=== PATIENT | female | born 1955 | race Two or more races ===

== ENCOUNTER 2017-10-22 11:54 | Emergency (ER) | payer OTHER ==
[~2017-10-22] VITALS: Ht 160 cm; Wt 39.9 kg
[~2017-10-22 11:54] MED LIST: ALEN70; ALEN70 PO; ALPR.5; ALPR.5 PO; ARIP10 PO; ASPI81EC PO; ATOR10; ATOR20 PO; ATOR40TA PO; Abilify5 MG; Aspir-Low81 MG PO; B Complex #11 EACH PO; BUDE6HFA INH; BUPR150ER; Bentyl20 MG; DULO30 PO; EPIPEN0.3 MG/0.3 IM; ESCI10; ESCI10 PO; ESCI20 PO; FENT50TP TOP; FENTANYL1 EAC1 TD; GABA300; GABA300 PO; HYDHCL25 PO; IRON PO; LISHYD1012; LISHYD1012 PO; LISI5; LISINOPRIL/HCTZ PO; LORA.5; LUNESTA; Lomotil Tablet1 EACH PO; MECL25; METO10; MORP15ER PO; Multiple Vitam1 EAC1 PO; NICO21TP; NITR.4SL SL; Neurontin 300300 MG PO; ONDA4ODT MM; OXYACE7.5T PO; PROACE100 PO; PROAIR RESPICL90 MCG INH; PROC10; PROC5S PR; PROM12.5S PR; PROM25S; TEMA30; TEMA30 PO; Vitamin A and1 EACH
[2017-10-22 13:42] LABS: BASOPHILS ABSOLUTE AUTO 0.05 K/mm3 (0.00-0.23); BASOPHILS PERCENT AUTO 1 % (0-2); EOSINOPHILS ABSOLUTE AUTO 0.04 K/mm3 (0.00-0.68); EOSINOPHILS PERCENT AUTO 1 % (0-6); Hemoglobin 13.3 g/dL (11.5-16.0); IMMATURE GRAN ABSOLUTE AUTO 0.02 K/mm3 (0.00-0.10); IMMATURE GRAN PERCENT AUTO 0 % (0-1); LYMPHOCYTES ABSOLUTE AUTO 2.39 K/mm3 (0.84-5.20); LYMPHOCYTES PERCENT AUTO 29 % (21-46); MONOCYTES ABSOLUTE AUTO 0.61 K/mm3 (0.16-1.47); MONOCYTES PERCENT AUTO 7 % (4-13); Mean Corpuscular HGB 32.4 pg (26.0-34.0); Mean Corpuscular Volume 93 fL (80-100); Mean Platelet Volume 8.8 fL (9.1-12.4); NEUTROPHILS ABSOLUTE AUTO 5.08 K/mm3 (1.96-9.15); NEUTROPHILS PERCENT AUTO 62 % (41-73); Platelet Count 320 K/mm3 (150-400); RDW Standard Deviation 43.8 fL (35.1-46.3); Red Blood Cell Count 4.11 M/mm3 (3.80-5.20); White Blood Cell Count 8.19 K/mm3 (4.00-11.30)
[2017-10-22 14:01] LABS: Alanine Aminotransfer (ALT/SGP 17 U/L (12-78); Albumin, Blood 4.5 g/dL (3.4-5.0); Albumin/Globulin Ratio 1.3 (0.8-1.8); Alk Phos 87 U/L (50-136); Anion Gap 6 mmol/L (6-16); Aspartate Aminotrans (AST/SGOT 19 U/L (12-37); Bilirubin, Total 0.3 mg/dL (0.1-1.0); Blood Urea Nitrogen 16 mg/dL (8-24); Bun/Creatinine Ratio 20.5 (12.0-20.0); CO2, Blood 28 mmol/L (21-32); Calcium, Blood 9.6 mg/dL (8.5-10.1); Chloride, Blood 99 mmol/L (98-108); Creatinine, Blood 0.78 mg/dL (0.40-1.00); Globulin, Blood 3.5 g/dL (2.2-4.0); Glomerular Filtration Rate >60 (60-); Glucose, Blood 86 mg/dL (70-99); Potassium, Blood 3.9 mmol/L (3.5-5.5); Sodium, Blood 133 mmol/L (136-145)
[2017-10-22] MEDS ORDERED: Pepcid20 MG PO (17:17)
[2017-10-22] MEDS ORDERED: METO10 PO (17:17)
== END 2017-10-22 17:59 | disposition home or self-care (01) ==
LOC: ER 11:54
PROVIDERS: Physician Assistant
DX: R11.2 Nausea with vomiting, unspecified (principal); E86.0 Dehydration; I10 Essential (primary) hypertension; J44.9 Chronic obstructive pulmonary disease, unspecified; Z88.8 Allergy status to other drugs, medicaments and biological substances; I25.2 Old myocardial infarction; Z79.899 Other long term (current) drug therapy; Z79.891 Long term (current) use of opiate analgesic; Z79.82 Long term (current) use of aspirin
CPT/HCPCS: 36415; 80053; 85025; 96361; 96374; 99284; J2405; J7030

== ENCOUNTER 2018-02-20 13:11 | Emergency (ER) | payer OTHER ==
[~2018-02-20] VITALS: Ht 160 cm; Wt 39.5 kg
[~2018-02-20 13:11] MED LIST changes: +METO10 PO; +Pepcid20 MG PO
[2018-02-20 13:53] LABS: BASOPHILS ABSOLUTE AUTO 0.03 K/mm3 (0.00-0.23); BASOPHILS PERCENT AUTO 0 % (0-2); EOSINOPHILS ABSOLUTE AUTO 0.01 K/mm3 (0.00-0.68); EOSINOPHILS PERCENT AUTO 0 % (0-6); Hemoglobin 12.1 g/dL (11.5-16.0); IMMATURE GRAN ABSOLUTE AUTO 0.02 K/mm3 (0.00-0.10); IMMATURE GRAN PERCENT AUTO 0 % (0-1); LYMPHOCYTES ABSOLUTE AUTO 1.72 K/mm3 (0.84-5.20); LYMPHOCYTES PERCENT AUTO 24 % (21-46); MONOCYTES ABSOLUTE AUTO 0.46 K/mm3 (0.16-1.47); MONOCYTES PERCENT AUTO 7 % (4-13); Mean Corpuscular HGB 35.2 pg (26.0-34.0); Mean Corpuscular HGB Conc 34.6 g/dL (31.5-36.5); Mean Corpuscular Volume 102 fL (80-100); Mean Platelet Volume 8.5 fL (9.1-12.4); NEUTROPHILS ABSOLUTE AUTO 4.87 K/mm3 (1.96-9.15); NEUTROPHILS PERCENT AUTO 69 % (41-73); Platelet Count 458 K/mm3 (150-400); RDW Standard Deviation 48.4 fL (35.1-46.3); Red Blood Cell Count 3.44 M/mm3 (3.80-5.20); White Blood Cell Count 7.11 K/mm3 (4.00-11.30)
[2018-02-20 14:14] LABS: Alanine Aminotransfer (ALT/SGP 31 U/L (12-78); Albumin, Blood 4.1 g/dL (3.4-5.0); Albumin/Globulin Ratio 1.2 (0.8-1.8); Alk Phos 97 U/L (50-136); Anion Gap 5 mmol/L (6-16); Aspartate Aminotrans (AST/SGOT 23 U/L (12-37); Bilirubin, Total 0.3 mg/dL (0.1-1.0); Blood Urea Nitrogen 10 mg/dL (8-24); CO2, Blood 27 mmol/L (21-32); Calcium, Blood 9.1 mg/dL (8.5-10.1); Chloride, Blood 104 mmol/L (98-108); Creatinine, Blood 0.67 mg/dL (0.40-1.00); Globulin, Blood 3.4 g/dL (2.2-4.0); Glomerular Filtration Rate >60 (60-); Glucose, Blood 107 mg/dL (70-99); Potassium, Blood 3.4 mmol/L (3.5-5.5); Sodium, Blood 136 mmol/L (136-145); Total Protein, Blood 7.5 g/dL (6.4-8.2)
[2018-02-20] MEDS ORDERED: Zofran4 MG SL (14:43)
[2018-02-20] MEDS ORDERED: SERT50 PO (14:43)
[2018-02-20] MEDS ORDERED: EPIPEN0.3 MG/0.3 IM (14:44)
[2018-02-20] MEDS ORDERED: TRAZ50 PO (14:44)
[2018-02-20] MEDS ORDERED: NITRSPRAY (14:44)
[2018-02-20 15:25] LABS: Source, Urine Clean Catch
[2018-02-20 15:35] LABS: Appearance, Urine Clear (Clear); Bilirubin, Urine Neg (Neg); Blood, Urine Neg (Neg); Color, Urine Yellow (P-Yellow); Glucose Qualitative, Urine Neg (Neg); Ketones, Urine Neg (Neg); Leukocyte Esterase, Urine 1+ (Neg); Nitrite, Urine Neg (Neg); Protein, Urine 1+ (Neg); Urobilinogen, Urine NORM (Normal); pH, Urine 6.5 (5.0-8.0)
[2018-02-20 15:56] LABS: Bacteria Rare /hpf; Red Blood Cells, Urine 0-2 /hpf (0-2); Squamous Epithelial Cells Rare /hpf (Few); White Blood Cells, Urine 0-2 /hpf (0-5)
== END 2018-02-20 16:50 | disposition home or self-care (01) ==
LOC: ER 13:11
PROVIDERS: Emergency Medicine
DX: E86.0 Dehydration (principal); R11.2 Nausea with vomiting, unspecified; I10 Essential (primary) hypertension; J44.9 Chronic obstructive pulmonary disease, unspecified; Z87.891 Personal history of nicotine dependence; Z79.899 Other long term (current) drug therapy; Z79.891 Long term (current) use of opiate analgesic; Z79.82 Long term (current) use of aspirin
CPT/HCPCS: 36415; 71046; 80053; 81001; 83690; 85025; 87086; J1200; J2765; J7120

== ENCOUNTER → 2019-03-25 | Outpatient (CLI) | payer OTHER ==
[~2019-03-25] MED LIST changes: +NITRSPRAY; +SERT50 PO; +TRAZ50 PO; +Zofran4 MG SL
[2019-03-25 19:35] LABS: Campylobacter Sp Not Detected (NOT DETECT)
[2019-03-25 19:36] LABS: Adenovirus F 40/41 Not Detected (NOT DETECT); Astrovirus Not Detected (NOT DETECT); Cryptosporidium Not Detected (NOT DETECT); Cyclospora Cayetanensis Not Detected (NOT DETECT); E. Coli O157 Not Detected (NOT DETECT); Entamoeba Histolytica Not Detected (NOT DETECT); Enteroaggregative E. coli-EAEC Not Detected (NOT DETECT); Enteropathogenic E. coli-EPEC Not Detected (NOT DETECT); Enterotoxigenic E. coli-ETEC Not Detected (NOT DETECT); Giardia Lamblia Not Detected (NOT DETECT); Norovirus GI/GII Not Detected (NOT DETECT); Plesiomonas Shigelloides Not Detected (NOT DETECT); Rotavirus A Not Detected (NOT DETECT); Salmonella Sp Not Detected (NOT DETECT); Sapovirus Not Detected (NOT DETECT); Shiga Toxin-prod E. coli-STEC Not Detected (NOT DETECT); Shigella/Enteroin E. coli-EIEC Not Detected (NOT DETECT); Vibrio Cholerae Not Detected (NOT DETECT); Vibrio Sp Not Detected (NOT DETECT); Yersinia Enterocolitica Not Detected (NOT DETECT)
== END ==
LOC: LAB SHORT 17:20 → LAB 17:20 → LAB FUT 03-17 15:40
PROVIDERS: Internal Medicine Gastroenterology
DX: R11.2 Nausea with vomiting, unspecified (principal); R19.7 Diarrhea, unspecified; R63.4 Abnormal weight loss
CPT/HCPCS: 87324; 87507

== ENCOUNTER 2019-04-15 10:41 | Emergency (ER) | payer OTHER ==
[~2019-04-15] VITALS: Ht 160 cm; Wt 38.1 kg
[2019-04-15 11:33] LABS: BASOPHILS ABSOLUTE AUTO 0.04 K/mm3 (0.00-0.23); BASOPHILS PERCENT AUTO 1 % (0-2); EOSINOPHILS ABSOLUTE AUTO 0.02 K/mm3 (0.00-0.68); EOSINOPHILS PERCENT AUTO 0 % (0-6); Hematocrit 30.7 % (33.0-51.0); Hemoglobin 10.7 g/dL (11.5-16.0); IMMATURE GRAN ABSOLUTE AUTO 0.02 K/mm3 (0.00-0.10); IMMATURE GRAN PERCENT AUTO 0 % (0-1); LYMPHOCYTES ABSOLUTE AUTO 1.68 K/mm3 (0.84-5.20); LYMPHOCYTES PERCENT AUTO 22 % (21-46); MONOCYTES ABSOLUTE AUTO 0.65 K/mm3 (0.16-1.47); MONOCYTES PERCENT AUTO 9 % (4-13); Mean Corpuscular HGB 34.6 pg (26.0-34.0); Mean Corpuscular HGB Conc 34.9 g/dL (31.5-36.5); Mean Corpuscular Volume 99 fL (80-100); Mean Platelet Volume 8.6 fL (9.1-12.4); NEUTROPHILS ABSOLUTE AUTO 5.23 K/mm3 (1.96-9.15); NEUTROPHILS PERCENT AUTO 68 % (41-73); Platelet Count 384 K/mm3 (150-400); RDW Coefficient Variation 12.1 % (11.7-14.2); Red Blood Cell Count 3.09 M/mm3 (3.80-5.20); White Blood Cell Count 7.64 K/mm3 (4.00-11.30)
[2019-04-15 12:00] LABS: Alanine Aminotransfer (ALT/SGP 24 U/L (12-78); Albumin, Blood 3.6 g/dL (3.4-5.0); Albumin/Globulin Ratio 1.1 (0.8-1.8); Alk Phos 91 U/L (50-136); Anion Gap 10 mmol/L (6-16); Aspartate Aminotrans (AST/SGOT 26 U/L (12-37); Bilirubin, Total 0.4 mg/dL (0.1-1.0); Blood Urea Nitrogen 12 mg/dL (8-24); Bun/Creatinine Ratio 18.5 (12.0-20.0); CO2, Blood 23 mmol/L (21-32); Calcium, Blood 9.2 mg/dL (8.5-10.1); Chloride, Blood 99 mmol/L (98-108); Creatinine, Blood 0.65 mg/dL (0.40-1.00); Globulin, Blood 3.3 g/dL (2.2-4.0); Glomerular Filtration Rate >60 (60-); Glucose, Blood 93 mg/dL (70-99); Potassium, Blood 3.6 mmol/L (3.5-5.5); Sodium, Blood 132 mmol/L (136-145); Total Protein, Blood 6.9 g/dL (6.4-8.2)
[2019-04-15] MEDS ORDERED: METO10 PO (12:20)
== END 2019-04-15 12:44 | disposition home or self-care (01) ==
LOC: ER 10:41
PROVIDERS: Emergency Medicine
DX: R11.2 Nausea with vomiting, unspecified (principal); D64.9 Anemia, unspecified; I25.2 Old myocardial infarction; I10 Essential (primary) hypertension; J44.9 Chronic obstructive pulmonary disease, unspecified; K31.89 Other diseases of stomach and duodenum; Z87.891 Personal history of nicotine dependence; Z79.82 Long term (current) use of aspirin; Z79.899 Other long term (current) drug therapy; Z88.8 Allergy status to other drugs, medicaments and biological substances
CPT/HCPCS: 80053; 83690; 85025; 93005; 93010; 96361; 96374; 96375; 99284-25; J1200; J2405; J2765; J7030

== ENCOUNTER 2019-08-15 05:10 | Emergency (ER) | payer MEDICARE ==
[~2019-08-15] VITALS: Ht 157.5 cm; Wt 36.7 kg
[2019-08-15] MEDS ORDERED: ESCITALOPRAM OX10 MG PO (05:27)
[2019-08-15] MEDS ORDERED: TEMA30 PO (05:27)
[2019-08-15] MEDS ORDERED: Zantac150 MG (05:27)
[2019-08-15 05:50] LABS: BASOPHILS ABSOLUTE AUTO 0.01 K/mm3 (0.00-0.23); BASOPHILS PERCENT AUTO 0 % (0-2); EOSINOPHILS ABSOLUTE AUTO 0.01 K/mm3 (0.00-0.68); EOSINOPHILS PERCENT AUTO 0 % (0-6); Hematocrit 31.5 % (33.0-51.0); Hemoglobin 11.4 g/dL (11.5-16.0); IMMATURE GRAN ABSOLUTE AUTO 0.02 K/mm3 (0.00-0.10); IMMATURE GRAN PERCENT AUTO 0 % (0-1); LYMPHOCYTES ABSOLUTE AUTO 0.97 K/mm3 (0.84-5.20); LYMPHOCYTES PERCENT AUTO 15 % (21-46); MONOCYTES ABSOLUTE AUTO 0.42 K/mm3 (0.16-1.47); MONOCYTES PERCENT AUTO 7 % (4-13); Mean Corpuscular HGB 37.3 pg (26.0-34.0); Mean Corpuscular HGB Conc 36.2 g/dL (31.5-36.5); Mean Corpuscular Volume 103 fL (80-100); Mean Platelet Volume 8.3 fL (9.1-12.4); NEUTROPHILS ABSOLUTE AUTO 4.93 K/mm3 (1.96-9.15); NEUTROPHILS PERCENT AUTO 77 % (41-73); Platelet Count 352 K/mm3 (150-400); RDW Coefficient Variation 13.4 % (11.7-14.2); RDW Standard Deviation 51.7 fL (35.1-46.3); Red Blood Cell Count 3.06 M/mm3 (3.80-5.20); White Blood Cell Count 6.36 K/mm3 (4.00-11.30)
[2019-08-15 06:11] LABS: Alanine Aminotransfer (ALT/SGP 22 U/L (12-78); Albumin/Globulin Ratio 1.2 (0.8-1.8); Alk Phos 75 U/L (50-136); Anion Gap 12 mmol/L (6-16); Aspartate Aminotrans (AST/SGOT 26 U/L (12-37); Bilirubin, Total 0.4 mg/dL (0.1-1.0); Blood Urea Nitrogen 16 mg/dL (8-24); Bun/Creatinine Ratio 24.1 (12.0-20.0); CO2, Blood 22 mmol/L (21-32); Calcium, Blood 9.5 mg/dL (8.5-10.1); Chloride, Blood 95 mmol/L (98-108); Creatinine, Blood 0.66 mg/dL (0.40-1.00); Globulin, Blood 3.2 g/dL (2.2-4.0); Glomerular Filtration Rate >60 (60-); Glucose, Blood 103 mg/dL (70-99); Magnesium, Blood 1.5 mg/dL (1.6-2.4); Potassium, Blood 3.9 mmol/L (3.5-5.5); Sodium, Blood 129 mmol/L (136-145); Total Protein, Blood 7.2 g/dL (6.4-8.2)
== END 2019-08-15 06:40 | disposition home or self-care (01) ==
LOC: ER 05:10
PROVIDERS: Emergency Medicine
DX: K31.84 Gastroparesis (principal); R11.2 Nausea with vomiting, unspecified; F41.9 Anxiety disorder, unspecified; I25.2 Old myocardial infarction; I10 Essential (primary) hypertension; J44.9 Chronic obstructive pulmonary disease, unspecified; Z87.891 Personal history of nicotine dependence; Z88.8 Allergy status to other drugs, medicaments and biological substances; Z79.899 Other long term (current) drug therapy; Z79.82 Long term (current) use of aspirin
CPT/HCPCS: 36415; 80053; 83690; 83735; 85025; 96361; 96374; 96375; 99284-25; J1200; J2405; J2765; J7030

== ENCOUNTER 2019-08-31 10:44 | Emergency (ER) | payer MEDICARE ==
[~2019-08-31] VITALS: Ht 157.5 cm; Wt 34.9 kg
[~2019-08-31 10:44] MED LIST changes: +ASPIR 8181 MG PO; -Aspir-Low81 MG PO; +ESCITALOPRAM OX10 MG PO; -LISINOPRIL/HCTZ PO; +ONDA4ODT PO; +ZESTORETIC 20-1 EAC1 PO; +Zantac150 MG PO; -Zofran4 MG SL
[2019-08-31 12:05] LABS: BASOPHILS ABSOLUTE AUTO 0.04 K/mm3 (0.00-0.23); BASOPHILS PERCENT AUTO 1 % (0-2); EOSINOPHILS ABSOLUTE AUTO 0.09 K/mm3 (0.00-0.68); EOSINOPHILS PERCENT AUTO 1 % (0-6); Hematocrit 29.7 % (33.0-51.0); Hemoglobin 10.3 g/dL (11.5-16.0); IMMATURE GRAN ABSOLUTE AUTO 0.03 K/mm3 (0.00-0.10); IMMATURE GRAN PERCENT AUTO 0 % (0-1); LYMPHOCYTES ABSOLUTE AUTO 1.48 K/mm3 (0.84-5.20); LYMPHOCYTES PERCENT AUTO 21 % (21-46); MONOCYTES ABSOLUTE AUTO 0.75 K/mm3 (0.16-1.47); MONOCYTES PERCENT AUTO 11 % (4-13); Mean Corpuscular HGB 36.9 pg (26.0-34.0); Mean Corpuscular HGB Conc 34.7 g/dL (31.5-36.5); Mean Corpuscular Volume 107 fL (80-100); Mean Platelet Volume 8.2 fL (9.1-12.4); NEUTROPHILS ABSOLUTE AUTO 4.66 K/mm3 (1.96-9.15); NEUTROPHILS PERCENT AUTO 66 % (41-73); Platelet Count 305 K/mm3 (150-400); RDW Coefficient Variation 12.8 % (11.7-14.2); RDW Standard Deviation 49.6 fL (35.1-46.3); Red Blood Cell Count 2.79 M/mm3 (3.80-5.20); White Blood Cell Count 7.05 K/mm3 (4.00-11.30)
[2019-08-31 12:21] LABS: Alanine Aminotransfer (ALT/SGP 28 U/L (12-78); Albumin/Globulin Ratio 1.3 (0.8-1.8); Alk Phos 107 U/L (50-136); Anion Gap 7 mmol/L (6-16); Aspartate Aminotrans (AST/SGOT 32 U/L (12-37); Bilirubin, Total 0.3 mg/dL (0.1-1.0); Blood Urea Nitrogen 16 mg/dL (8-24); CO2, Blood 29 mmol/L (21-32); Chloride, Blood 98 mmol/L (98-108); Glomerular Filtration Rate >60 (60-); Glucose, Blood 74 mg/dL (70-99); Potassium, Blood 3.2 mmol/L (3.5-5.5); Sodium, Blood 134 mmol/L (136-145)
== END 2019-08-31 14:09 | disposition home or self-care (01) ==
LOC: ER 10:44
PROVIDERS: Emergency Medicine
DX: K31.84 Gastroparesis (principal); E87.6 Hypokalemia; Z88.8 Allergy status to other drugs, medicaments and biological substances; Z79.899 Other long term (current) drug therapy; Z79.82 Long term (current) use of aspirin; I10 Essential (primary) hypertension; I25.2 Old myocardial infarction; J44.9 Chronic obstructive pulmonary disease, unspecified
CPT/HCPCS: 36415; 80053; 83690; 85025; 96361; 96374; 96375; 99284-25; J1200; J2765; J7030

== ENCOUNTER 2019-09-09 01:29 | Inpatient (IN) | payer MEDICARE ==
[~2019-09-09] VITALS: Ht 157.5 cm; Wt 34.8 kg
[2019-09-09 01:57] LABS: BASOPHILS ABSOLUTE AUTO 0.03 K/mm3 (0.00-0.23); BASOPHILS PERCENT AUTO 0 % (0-2); EOSINOPHILS ABSOLUTE AUTO 0.01 K/mm3 (0.00-0.68); EOSINOPHILS PERCENT AUTO 0 % (0-6); Hematocrit 32.4 % (33.0-51.0); Hemoglobin 11.7 g/dL (11.5-16.0); IMMATURE GRAN ABSOLUTE AUTO 0.01 K/mm3 (0.00-0.10); IMMATURE GRAN PERCENT AUTO 0 % (0-1); LYMPHOCYTES ABSOLUTE AUTO 1.39 K/mm3 (0.84-5.20); LYMPHOCYTES PERCENT AUTO 16 % (21-46); MONOCYTES ABSOLUTE AUTO 0.76 K/mm3 (0.16-1.47); MONOCYTES PERCENT AUTO 9 % (4-13); Mean Corpuscular HGB Conc 36.1 g/dL (31.5-36.5); Mean Corpuscular Volume 105 fL (80-100); Mean Platelet Volume 8.3 fL (9.1-12.4); NEUTROPHILS ABSOLUTE AUTO 6.78 K/mm3 (1.96-9.15); NEUTROPHILS PERCENT AUTO 76 % (41-73); Platelet Count 353 K/mm3 (150-400); RDW Coefficient Variation 12.2 % (11.7-14.2); RDW Standard Deviation 47.2 fL (35.1-46.3); Red Blood Cell Count 3.08 M/mm3 (3.80-5.20); White Blood Cell Count 8.98 K/mm3 (4.00-11.30)
[2019-09-09 02:13] LABS: Ethanol (Alcohol), Blood, Med <3 mg/dL
[2019-09-09 02:16] LABS: Source, Urine Clean Catch
[2019-09-09 02:25] LABS: Alanine Aminotransfer (ALT/SGP 29 U/L (12-78); Albumin, Blood 4.4 g/dL (3.4-5.0); Albumin/Globulin Ratio 1.3 (0.8-1.8); Alk Phos 79 U/L (50-136); Anion Gap 13 mmol/L (6-16); Aspartate Aminotrans (AST/SGOT 33 U/L (12-37); Bilirubin, Total 0.7 mg/dL (0.1-1.0); Blood Urea Nitrogen 10 mg/dL (8-24); Bun/Creatinine Ratio 15.8 (12.0-20.0); CO2, Blood 25 mmol/L (21-32); Calcium, Blood 10.4 mg/dL (8.5-10.1); Chloride, Blood 92 mmol/L (98-108); Creatinine, Blood 0.63 mg/dL (0.40-1.00); Globulin, Blood 3.3 g/dL (2.2-4.0); Glomerular Filtration Rate >60 (60-); Glucose, Blood 118 mg/dL (70-99); Potassium, Blood 3.2 mmol/L (3.5-5.5); Sodium, Blood 130 mmol/L (136-145); Total Protein, Blood 7.7 g/dL (6.4-8.2)
[2019-09-09 02:28] LABS: Appearance, Urine Clear (Clear); Bilirubin, Urine Neg (Neg); Blood, Urine 1+ (Neg); Color, Urine Yellow (P-Yellow); Glucose Qualitative, Urine Neg (Neg); Ketones, Urine 1+ (Neg); Leukocyte Esterase, Urine 1+ (Neg); Nitrite, Urine Neg (Neg); Protein, Urine 2+ (Neg); Specific Gravity, Urine 1.005 (1.003-1.022); Urobilinogen, Urine NORM (Normal)
[2019-09-09 02:35] LABS: Amorphous Light (0-Heavy); Bacteria Few /hpf; Red Blood Cells, Urine 0-2 /hpf (0-2); Squamous Epithelial Cells Rare /hpf (Few); White Blood Cells, Urine 0-2 /hpf (0-5)
[2019-09-09 03:03] LABS: U Amphetamine Screen Not Detected; U Barbituate Screen Not Detected; U Benzodiazapine Screen DETECTED; U Buprenorphine Screen Not Detected; U Cannabinoids Screen DETECTED; U Cocaine Screen Not Detected; U Methadone Screen Not Detected; U Methamphetamine Screen Not Detected; U Opiates Screen Not Detected; U Oxycodone Screen DETECTED; U Phencyclidine Screen Not Detected; U Propoxyphene Screen Not Detected
--- NOTE | 2019-09-09 06:45 | NUR ---
ASSUMED PT CARE AT 0610 PT RESTING IN BED ALERT AND ORIENTED AND RESPONDING TO QUESTIONS APPROPRIATELY. RECALLS WHY SHE CAME TO THE HOSPITAL. NOTED TO BE FORGETFUL AT TIMES. SBP 150-180'S UPON ADMIT. PT CLAIMS SHE TAKES HER BLOOD PRESSURE MEDICATION. UNABLE TO RECONCILE MED LIST D/T PT BEING POOR HISTORIAN. NO FAMILY AT BEDSIDE UPON ASSUMPTION OF CARE. PT CLAIMS HER IS FAIRLY FORGETFUL AND WENT HOME FOR THE NIGHT. 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 PT CLAIMS SHE HAS HAD A POOR APPETITE FOR SOME TIME NOW; STATES TWO YEARS AGO SHE WEIGHED 130 AND IS NOW DOWN TO 70 POUNDS. PT STATES SHE SMOKE MARIJUANA FOR HER NAUSEA AT HOME. ALSO STATES SHE SMOKE 1/2 PACK OF CIGARETTES PER DAY. LUNG SOUNDS ARE DIMINISHED T/O WITH NON-PRODUCTIVE, HARSH COUGH. CALL LIGHT WITHIN REACH; PT ABLE TO MAKE HER NEEDS KNOWN. WILL CONTINUE TO MONITOR UNTIL REPORT IS HANDED OFF TO ONCOMING RN.
--- NOTE | 2019-09-09 16:24 | NUR ---
CARE ASSUMED 0800: CARE ASSUMED, ASSESSMENT COMPLETED. PT DROWSY BUT WAKES EASILY, ORIENTED TO SELF, PLACE, SITUATION, DOES NOT APPEAR TO BE POSTICTAL AT THIS TIME. STATES SHE HAS HAD ONE SEIZURE BEFORE WHEN SHE WAS 17, NONE SINCE. PT REPORTS OVER THE PAST 2 YEARS SHE HAS LOST ABOUT 50 POUNDS D/T POOR APPETITE, ABDOMINAL PAIN, AND CHRONIC NAUSEA. WILL CONSULT DR. VORA PER ORDERS. PT APPEARS MALNOURISHED, SKIN GROSSLY INTACT. BP ELEVATED, OTHER VSS, WILL MEDICATE PER MAR. SEIZURE PRECAUTIONS IN PLACE. WILL MEDICATE FOR NAUSEA, NO EMESIS, PT DENIES ABD PAIN AT THIS TIME. 1000: PT RESTING ON AND OFF, REMAINS DROWSY BUT ORIENTED. EEG COMPLETED, DR IN TO SEE PATIENT. 1200: PT AWAKE AND ALERT, SITTING UP IN BED TO EAT LUNCH, DENIES ABD PAIN OR C/O, NO SEIZURE ACTIVITY THIS SHIFT. BP RESPONDED WELL TO AM MEDS, OTHER VSS. UNABLE TO COMPLETE MRI AT THIS TIME, AWAITING CARDIAC STENT INFORMATION FROM HOSPITAL IN [place]. 1400: PT RESTING ON AND OFF, MEDICATED AT THIS TIME FOR NAUSEA, DENIES OTHER NEEDS. VSS. 1600: AT BEDSIDE, PT UP MULTIPLE TIMES FOR LIQUID BM'S AFTER LACTULOSE. CAPPS PATENT AND DRAINING, VSS. PT STATES NAUSEA IS MINIMAL, DENIES ABD PAIN. TOLERATING CLEAR LIQUIDS WELL, NO EMESIS THIS SHIFT, NO SEIZURE ACTIVITY.
--- NOTE | 2019-09-09 18:03 | NUR ---
Spiritual Care inital note: Mrs. Jose was welcoming of prayer and emotional encouragement. She smiles easily and tells me she is hopeful. She has a strong and loving marriage. She denied fears/concerns. School Lunch Manager services will remain available.
--- NOTE | 2019-09-09 18:28 | NUR ---
PT UP TO BSC, ASSISTED BACK TO BED, WAS SPEAKING NORMALLY WITH STAFF UPON RETURN TO BED, BEGAN STUTTERING, REMAINS ALERT AND ORIENTED X4, DENIES PAIN/SOB. BILAT ARMS WERE RAISED ABOVE PT'S HEAD, ARMS BEGAN SHAKING, PT CONTINUES TO STUTTER, STATES SHE IS UNABLE TO CONTROL MOVEMENTS. EPISODE LASTED APPROXIMATELY 2-3 MINUTES, ATIVAN 1MG ADMINISTERED PER ORDERS, PT CALMED, UNCONTROLLED MOVEMENTS/STUTTERING STOPPED. VSS T/O, PT REMAINED ALERT AND SPEAKING APPROPRIATELY T/O EPISODE.
--- NOTE | 2019-09-09 18:44 | NUR ---
PT RESTING IN BED WITH EYES CLOSED, VSS, HR 70'S NSR, NO ADDITIONAL TREMORS NOTED. DR. PULIDO NOTIFIED OF PT'S EPISODE, NO NEW ORDERS AT THIS TIME. REPORT TO ONCOMING SHIFT.
--- NOTE | 2019-09-09 19:22 | NUR ---
PREVENTATIVE MEPILEX PLACED TO COCCYX EARLIER THIS SHIFT, NO WOUND TO COCCYX.
[2019-09-09 20:30] LABS: Adenovirus F 40/41 Not Detected (NOT DETECT); Astrovirus Not Detected (NOT DETECT); Campylobacter Sp Not Detected (NOT DETECT); Cryptosporidium Not Detected (NOT DETECT); Cyclospora Cayetanensis Not Detected (NOT DETECT); E. Coli O157 Not Detected (NOT DETECT); Entamoeba Histolytica Not Detected (NOT DETECT); Enteroaggregative E. coli-EAEC Not Detected (NOT DETECT); Enteropathogenic E. coli-EPEC Not Detected (NOT DETECT); Enterotoxigenic E. coli-ETEC Not Detected (NOT DETECT); Giardia Lamblia Not Detected (NOT DETECT); Norovirus GI/GII Not Detected (NOT DETECT); Plesiomonas Shigelloides Not Detected (NOT DETECT); Rotavirus A Not Detected (NOT DETECT); Salmonella Sp Not Detected (NOT DETECT); Shiga Toxin-prod E. coli-STEC Not Detected (NOT DETECT); Shigella/Enteroin E. coli-EIEC Not Detected (NOT DETECT); Vibrio Cholerae Not Detected (NOT DETECT); Vibrio Sp Not Detected (NOT DETECT); Yersinia Enterocolitica Not Detected (NOT DETECT)
[2019-09-09 20:31] LABS: Sapovirus Not Detected (NOT DETECT)
--- NOTE | 2019-09-09 22:20 | NUR ---
ASSUMPTION OF CARE ASSUMED CARE FROM DAYSHIFT NURSE. PT SATS ABOVE 95% ON RA. A&OX4. PULSES STRONG. LUNGS CTAB. PATIENT SLEEPY, BUT AROUSABLE. TRANSFERRED TO MEDICAL FLOOR AFTER GIVING NIGHT TIME MEDS (LACTULOSE AND KEPPRA).
--- NOTE | 2019-09-10 04:39 | NUR ---
SHIFT SUMMARY AMANDA'S LS WERE CLR T/O AND BT+ X4. AMANDA APPEARS TO BE SLEEPING WELL T/O THE NIGHT EXCEPT TO GET UP TO BSC. AMANDA ARRIVED HERE TO THIS UNIT LATE IN THE EVENING LAST NIGHT. SHE CAME FROM PCU. AMANDA IS VERY THIN AND ANOREXIC. SHE RECENTLY LOST 50 LBS. AND CURRENTLY WEIGHS 75-80 LBS. AMANDA WAS ADMITTED FOR SEIZURES. SHE HAD ONE AT HOME THAT LASTED 10 MIN AND ONE IN THE ER THAT LASTED 1 MIN AND ONE IN PCU THAT LASTED 1 MIN. WHEN EXPERIENCING A SEIZURE, SHE RAISES UP ONE HAND AND HER EYES MOVE [id number]. NO EPISODES HAVE HAPPENED TONIGHT.
--- NOTE | 2019-09-10 06:19 | NUR ---
NURSE NOTE AT APPROX 0614 THIS MORNING, AMANDA HAD ANOTHER EPISODE THAT RESEMBLED A SEIZURE. WHEN SHE FELT IT COMING ON, SHE WAS ABLE TO PUSH HER CALL BUTTON. A PRODUCT SUPPORT ANALYST WENT IN AND OBSERVED HER HAVING A "SEIZURE," WHICH CAN BE DESCRIBED BILATERAL HANDS UP IN THE AIR AND BEING UNABLE TO SPEAK. THE PRODUCT SUPPORT ANALYST TIMED IT APPROX 1 MINUTE. WHEN AMANDA CAME OUT OF THE "SEIZURE," SHE WAS VERY TALKATIVE AND NOT SLEEPY AT ALL.
--- NOTE | 2019-09-10 15:37 | NUR ---
09/10/19 1537 Nubia Santillan History, Chart, Medications and Allergies reviewed before start of procedure. PATIENT CONFIRMS NPO STATUS AND AGREES WITH SCHEDULED PROCEDURE.MONITOR INTACT WITH CONTINUOUS PULSE OXIMETRY AND INTERMITTENT BP. O2 VIA N/C INTACT THROUGHOUT SEDATION/PROCEDURE. 3-LEAD EKG REVIEWED WITH PHYSICIAN PRIOR TO START OF PROCEDURE. PATIENT DETERMINED TO BE ASA APPROPRIATE FOR PROPOFOL SEDATION PRIOR TO START OF PROCEDURE BY DR. VORA.
--- NOTE | 2019-09-10 19:00 | NUR ---
PT. SLEEPING SOUNDLY AT THIS TIME, ATE PART OF HER FULL LIQUID DINNER. RETURNED FROM DAY SURGERY AT 1630. A&O BUT A LITTLE DROWSY. TOLERATED PROCEDURE WELL. DENIES PAIN NAUSEA OR SOB. NO NOTEABLE CHANGES THIS SHIFT.
--- NOTE | 2019-09-11 04:32 | NUR ---
AMANDA'S LS WERE CLR T/O AND BT+. SHE HAD ZOFRAN FOR NAUSEA AT 2003 WHICH WAS EFFECTIVE, AND SHE HAD ATIVAN FOR ANXIETY, WHICH WAS ALSO EFFECTIVE. NO "SEIZURE ACTIVITY" WAS NOTED LAST NIGHT OR THIS MORNING. SHE RECEIVED HER IV KEPPRA SCHEDULED WITH NO ASE NOTED. SHE APPEARED TO BE SLEEPING ON AND OFF ALL NIGHT. SHE REFUSED HER LACTULOSE X1 THIS SHIFT SHE WAS EXPERIENCING DIARRHEA EACH TIME SHE USED THE TOILET.
[2019-09-11 05:34] LABS: Anion Gap 5 mmol/L (6-16); Blood Urea Nitrogen 4 mg/dL (8-24); Bun/Creatinine Ratio 5.7 (12.0-20.0); CO2, Blood 25 mmol/L (21-32); Calcium, Blood 8.2 mg/dL (8.5-10.1); Chloride, Blood 105 mmol/L (98-108); Glomerular Filtration Rate >60 (60-); Glucose, Blood 88 mg/dL (70-99); Potassium, Blood 3.4 mmol/L (3.5-5.5); Sodium, Blood 135 mmol/L (136-145)
[2019-09-11] MEDS ORDERED: LEVE500 PO (12:51)
[2019-09-11] MEDS ORDERED: Prinivil10 MG PO (12:51)
--- NOTE | 2019-09-11 14:09 | NUR ---
[facility]ED [facility] AND ADDED THE POTASSIUM PRESCRIPTION PER DR STERLING'S ORDERS. PATIENT IS ALERT AND ORIENTED INDEPENDENT. PLEASANT. ALL INFORMATION GIVEN TO THE PATIENT. SHE MADE HER OWN FOLLOW UP APPOINTMENT WITH KELLE DONALDSON PRIOR TO DISCHARGE.
[2019-09-15 17:06] LABS: ALANINE 355.4 umol/L (209.2-515.5); ALPHA-AMINOADIPATE <0.5 umol/L (0.0-1.9); ALPHA-AMINOBUTYRATE 16.4 umol/L (5.4-34.5); ARGININE 79.6 umol/L (36.3-119.2); ARGININOSUCCINATE <0.1 umol/L (0.0-3.0); ASPARAGINE 61.7 umol/L (29.5-84.5); ASPARTATE 1.7 umol/L (0.0-7.4); BETA-ALANINE 1.6 umol/L (1.1-9.0); BETA-AMINOISOBUTYRATE 1.6 umol/L (0.0-4.3); CITRULLINE 45.9 umol/L (15.6-46.9); CYSTATHIONINE <0.5 umol/L (0.0-0.7); CYSTINE 50.8 umol/L (15.8-47.3); GAMMA-AMINOBUTYRATE <0.5 umol/L (0.0-0.6); GLUTAMATE 28.2 umol/L (18.1-155.9); GLUTAMINE 554.1 umol/L (372.8-701.4); GLYCINE 345.1 umol/L (144.0-411.0); HISTIDINE 63.9 umol/L (47.2-98.5); HOMOCITRULLINE 0.9 umol/L (0.0-1.7); HOMOCYSTINE <0.3 umol/L (0.0-0.2); HYDROXYLYSINE 0.3 umol/L (0.1-0.8); ISOLEUCINE 36.8 umol/L (32.8-88.3); LEUCINE 61.8 umol/L (66.7-165.7); LYSINE 129.6 umol/L (94.0-278.0); METHIONINE 25.5 umol/L (14.7-35.2); ORNITHINE 55.2 umol/L (30.1-101.3); PHENYLALANINE 57.3 umol/L (35.8-76.9); PROLINE 192.2 umol/L (84.8-352.5); SARCOSINE 1.1 umol/L (0.0-4.0); TAURINE 32.3 umol/L (29.2-132.3); TRYPTOPHAN 35.7 umol/L (23.5-93.0); TYROSINE 32.7 umol/L (27.8-83.3); VALINE 96.6 umol/L (133.0-317.1)
== END 2019-09-11 13:17 | disposition home or self-care (01) | DRG 100 ==
LOC: ER 01:29 → ICUW 05:15 → MEDS 05:15 → ICUE 05:15 → MEDS 21:14
PROVIDERS: Emergency Medicine; Internal Medicine; Internal Medicine Gastroenterology; ADMIT Family Medicine
PROC: 0DD68ZX Extraction of Stomach, Via Natural or Artificial Opening Endoscopic, Diagnostic (ICD-10-PCS; 2019-09-10)
PROC: 0DD98ZX Extraction of Duodenum, Via Natural or Artificial Opening Endoscopic, Diagnostic (ICD-10-PCS; principal; 2019-09-10 17:15)
DX: G40.409 Other generalized epilepsy and epileptic syndromes, not intractable, without status epilepticus (principal); E43 Unspecified severe protein-calorie malnutrition; R65.10 Systemic inflammatory response syndrome (SIRS) of non-infectious origin without acute organ dysfunction; E87.1 Hypo-osmolality and hyponatremia; N39.0 Urinary tract infection, site not specified; R64 Cachexia; Z68.1 Body mass index [BMI] 19.9 or less, adult; K44.9 Diaphragmatic hernia without obstruction or gangrene; E87.6 Hypokalemia; Z66 Do not resuscitate; K21.9 Gastro-esophageal reflux disease without esophagitis; I25.10 Atherosclerotic heart disease of native coronary artery without angina pectoris; R19.7 Diarrhea, unspecified; K31.84 Gastroparesis; G43.909 Migraine, unspecified, not intractable, without status migrainosus; Z79.82 Long term (current) use of aspirin; R62.7 Adult failure to thrive; Z87.891 Personal history of nicotine dependence
CPT/HCPCS: 0097U; 36415; 51702; 70450; 74177; 80048; 80053; 81001; 82139; 82140; 83605; 83690; 83970; 85025; 87040; 87086; 88305; 88342; 93005; 93010; 95819; 96374-59; 96375-59; 99285-25; C9113; G0480; J0696; J1953; J2060; J2405; J2704; J3480; J7030; J7120; P9612; Q9967

== ENCOUNTER 2020-09-10 06:26 | Observation (INO) | payer MEDICARE ==
[~2020-09-10] VITALS: Ht 160 cm; Wt 44.0 kg
[~2020-09-10 06:26] MED LIST changes: -ASPIR 8181 MG PO; -ATOR40TA PO; -ESCITALOPRAM OX10 MG PO; +LEVE500 PO; -ONDA4ODT PO; -PROM12.5S PR
[2020-09-10 07:06] LABS: BASOPHILS ABSOLUTE AUTO 0.05 K/mm3 (0.00-0.23); BASOPHILS PERCENT AUTO 0 % (0-2); EOSINOPHILS ABSOLUTE AUTO 0.04 K/mm3 (0.00-0.68); EOSINOPHILS PERCENT AUTO 0 % (0-6); Hematocrit 35.7 % (33.0-51.0); Hemoglobin 12.2 g/dL (11.5-16.0); IMMATURE GRAN ABSOLUTE AUTO 0.06 K/mm3 (0.00-0.10); IMMATURE GRAN PERCENT AUTO 1 % (0-1); LYMPHOCYTES PERCENT AUTO 13 % (21-46); MONOCYTES ABSOLUTE AUTO 1.13 K/mm3 (0.16-1.47); MONOCYTES PERCENT AUTO 10 % (4-13); Mean Corpuscular HGB 32.3 pg (26.0-34.0); Mean Corpuscular HGB Conc 34.2 g/dL (31.5-36.5); Mean Corpuscular Volume 94 fL (80-100); Mean Platelet Volume 8.2 fL (9.1-12.4); NEUTROPHILS ABSOLUTE AUTO 8.48 K/mm3 (1.96-9.15); NEUTROPHILS PERCENT AUTO 75 % (41-73); Platelet Count 407 K/mm3 (150-400); RDW Coefficient Variation 13.3 % (11.7-14.2); RDW Standard Deviation 45.7 fL (35.1-46.3); Red Blood Cell Count 3.78 M/mm3 (3.80-5.20); White Blood Cell Count 11.26 K/mm3 (4.00-11.30)
[2020-09-10 07:25] LABS: Albumin, Blood 3.7 g/dL (3.4-5.0); Albumin/Globulin Ratio 0.9 (0.8-1.8); Bilirubin, Total 0.4 mg/dL (0.1-1.0); Bun/Creatinine Ratio 21.1 (12.0-20.0); Creatinine, Blood 1.33 mg/dL (0.40-1.00); Globulin, Blood 4.1 g/dL (2.2-4.0); Potassium, Blood 3.2 mmol/L (3.5-5.5); Total Protein, Blood 7.8 g/dL (6.4-8.2)
[2020-09-10 09:10] LABS: Source, Urine Clean Catch
[2020-09-10 09:12] LABS: Appearance, Urine Clear (Clear); Bilirubin, Urine Neg (Neg); Blood, Urine Neg (Neg); Color, Urine Yellow (P-Yellow); Glucose Qualitative, Urine Neg (Neg); Ketones, Urine Neg (Neg); Leukocyte Esterase, Urine 1+ (Neg); Nitrite, Urine Neg (Neg); Protein, Urine 2+ (Neg); Urobilinogen, Urine NORM (Normal)
[2020-09-10 09:19] LABS: Bacteria Few /hpf; Red Blood Cells, Urine 0-2 /hpf (0-2); Squamous Epithelial Cells Rare /hpf (Few)
[2020-09-10] MEDS ORDERED: CIPR500 PO (14:41)
[2020-09-10] MEDS ORDERED: METR500 PO (14:41)
[2020-09-10] MEDS ORDERED: ONDA4ODT MM (14:53)
[2020-09-10] MEDS ORDERED: ESCI20 PO (17:06)
[2020-09-10] MEDS ORDERED: TEMAZEPAM30 M1 PO (17:07)
[2020-09-10] MEDS ORDERED: ATOR40TA PO (17:08)
[2020-09-10] MEDS ORDERED: Lisinopril-Hct1 EAC4 PO (17:08)
[2020-09-10] MEDS ORDERED: ASPIR 8181 MG PO (17:19)
[2020-09-10] MEDS ORDERED: PHENERGAN25 MG PR (17:20)
[2020-09-10] MEDS ORDERED: ONDA4ODT SL (17:21)
[2020-09-10] MEDS ORDERED: NITR.4SL SL (17:22)
[2020-09-10] MEDS ORDERED: ALEN70 PO (17:22)
--- NOTE | 2020-09-10 19:30 | NUR ---
AWAKE. IVF INFUSING - SEE MAR FOR DETAILS. DISCUSSED NPO AFTER 0000, VOICED UNDERSTANDING. VOICED SHARP ABD PAIN. WILL ASSESS WHEN TO GET ANALGESIC. CALL LIGHT IN REACH
[2020-09-10 22:44] LABS: Influenza A, PCR Negative (NEGATIVE); Influenza B, PCR Negative (NEGATIVE); Resp Syncytial Virus, PCR Negative (NEGATIVE); SARS-Cov-2 (COVID-19) PCR, MMC Negative (NEGATIVE)
--- NOTE | 2020-09-11 01:57 | NUR ---
NPO SINCE 0000 FOR SURGICAL PROCEDURE SCHEDULED LATER TODAY. IVF INFUSING. CALL LIGHT IN REACH
--- NOTE | 2020-09-11 05:14 | NUR ---
SHIFT SUMMARY HAS BEEN RESTING QUIETLY SINCE HAVING RECEIVED ANALGESIC LAST NIGHT FOR ABD PAIN. NPO SINCE MIDNIGHT FOR SCHEDULED AMILCAR TODAY. IVF INFUSING ORDERED. CALL LIGHT IN REACH
[2020-09-11 05:37] LABS: BASOPHILS ABSOLUTE AUTO 0.02 K/mm3 (0.00-0.23); BASOPHILS PERCENT AUTO 0 % (0-2); EOSINOPHILS ABSOLUTE AUTO 0.14 K/mm3 (0.00-0.68); EOSINOPHILS PERCENT AUTO 2 % (0-6); Hematocrit 30.4 % (33.0-51.0); Hemoglobin 10.1 g/dL (11.5-16.0); IMMATURE GRAN ABSOLUTE AUTO 0.02 K/mm3 (0.00-0.10); IMMATURE GRAN PERCENT AUTO 0 % (0-1); LYMPHOCYTES ABSOLUTE AUTO 1.36 K/mm3 (0.84-5.20); LYMPHOCYTES PERCENT AUTO 19 % (21-46); MONOCYTES ABSOLUTE AUTO 0.71 K/mm3 (0.16-1.47); MONOCYTES PERCENT AUTO 10 % (4-13); Mean Corpuscular HGB 31.7 pg (26.0-34.0); Mean Corpuscular HGB Conc 33.2 g/dL (31.5-36.5); Mean Corpuscular Volume 95 fL (80-100); Mean Platelet Volume 8.2 fL (9.1-12.4); NEUTROPHILS ABSOLUTE AUTO 4.88 K/mm3 (1.96-9.15); NEUTROPHILS PERCENT AUTO 68 % (41-73); Platelet Count 316 K/mm3 (150-400); RDW Coefficient Variation 13.3 % (11.7-14.2); RDW Standard Deviation 46.6 fL (35.1-46.3); Red Blood Cell Count 3.19 M/mm3 (3.80-5.20); White Blood Cell Count 7.13 K/mm3 (4.00-11.30)
[2020-09-11 05:49] LABS: International Normalized Ratio 0.98; Prothrombin Time Results 10.5 Sec (9.7-11.5)
[2020-09-11 06:00] LABS: Alanine Aminotransfer (ALT/SGP 41 U/L (12-78); Albumin, Blood 2.8 g/dL (3.4-5.0); Albumin/Globulin Ratio 0.9 (0.8-1.8); Alk Phos 277 U/L (50-136); Anion Gap 7 mmol/L (6-16); Aspartate Aminotrans (AST/SGOT 50 U/L (12-37); Bilirubin, Total 0.5 mg/dL (0.1-1.0); Blood Urea Nitrogen 13 mg/dL (8-24); Bun/Creatinine Ratio 15.2 (12.0-20.0); CO2, Blood 28 mmol/L (21-32); Calcium, Blood 8.8 mg/dL (8.5-10.1); Chloride, Blood 99 mmol/L (98-108); Creatinine, Blood 0.86 mg/dL (0.40-1.00); Globulin, Blood 3.2 g/dL (2.2-4.0); Glomerular Filtration Rate >60 (60-); Glucose, Blood 81 mg/dL (70-99); Potassium, Blood 3.7 mmol/L (3.5-5.5); Sodium, Blood 134 mmol/L (136-145)
[2020-09-11 10:05] LABS: Campylobacter Sp Not Detected (NOT DETECT)
[2020-09-11 10:06] LABS: Adenovirus F 40/41 Not Detected (NOT DETECT); Astrovirus Not Detected (NOT DETECT); Cryptosporidium Not Detected (NOT DETECT); Cyclospora Cayetanensis Not Detected (NOT DETECT); E. Coli O157 Not Detected (NOT DETECT); Entamoeba Histolytica Not Detected (NOT DETECT); Enteroaggregative E. coli-EAEC Not Detected (NOT DETECT); Enteropathogenic E. coli-EPEC Not Detected (NOT DETECT); Enterotoxigenic E. coli-ETEC Not Detected (NOT DETECT); Giardia Lamblia Not Detected (NOT DETECT); Norovirus GI/GII Not Detected (NOT DETECT); Plesiomonas Shigelloides Not Detected (NOT DETECT); Rotavirus A Not Detected (NOT DETECT); Salmonella Sp Not Detected (NOT DETECT); Sapovirus Not Detected (NOT DETECT); Shiga Toxin-prod E. coli-STEC Not Detected (NOT DETECT); Shigella/Enteroin E. coli-EIEC Not Detected (NOT DETECT); Vibrio Cholerae Not Detected (NOT DETECT); Vibrio Sp Not Detected (NOT DETECT); Yersinia Enterocolitica Not Detected (NOT DETECT)
--- NOTE | 2020-09-11 17:29 | NUR ---
SHIFT SUMMARY NO ACUTE CHANGES T/O SHIFT, A&Ox4, CALM AND COOPERATIVE. FLUIDS RUNNING @ 100 ML/HR CURRENTLY. PT EXPERIENCED SOME NAUSEA AND PAIN TODAY, BOTH TREATED PER EMAR. GALBLADDER REMOVAL RESCHEDULED FOR TOMORROW AND TO BE NPO AFTER MIDNIGHT PER RODNEY. PT IS CURRENTLY RESTING IN BED WATCHING TV WITH CALL LIGHT WITHIN REACH.
--- NOTE | 2020-09-11 19:21 | NUR ---
AWAKE, CHEERFUL AFFECT. DISCUSSED NPO AFTER MIDNIGHT AGAIN. VOICED UNDERSTANDING. IVF OF LR INFUSING AT 100 ML/HR. CALL LIGHT IN REACH.
--- NOTE | 2020-09-12 03:56 | NUR ---
SHIFT SUMMARY HAS BEEN RESTING QUIETLY AT INTERVALS SINCE HS. IVF OF LR CONTINUES AT 100 ML/HR ORDERED. NPO SINCE 0000 FOR SCHEDULED SURGERY LATER THIS AM. CALL LIGHT IN REACH. NO NOTED ACUTE DISTRESS.
[2020-09-12 09:03] LABS: Alanine Aminotransfer (ALT/SGP 34 U/L (12-78); Albumin/Globulin Ratio 0.8 (0.8-1.8); Alk Phos 261 U/L (50-136); Anion Gap 5 mmol/L (6-16); Aspartate Aminotrans (AST/SGOT 46 U/L (12-37); Bilirubin, Total 0.4 mg/dL (0.1-1.0); Blood Urea Nitrogen 7 mg/dL (8-24); Bun/Creatinine Ratio 8.6 (12.0-20.0); CO2, Blood 31 mmol/L (21-32); Calcium, Blood 8.7 mg/dL (8.5-10.1); Chloride, Blood 99 mmol/L (98-108); Creatinine, Blood 0.82 mg/dL (0.40-1.00); Globulin, Blood 3.7 g/dL (2.2-4.0); Glomerular Filtration Rate >60 (60-); Glucose, Blood 94 mg/dL (70-99); Potassium, Blood 3.5 mmol/L (3.5-5.5); Sodium, Blood 135 mmol/L (136-145); Total Protein, Blood 6.7 g/dL (6.4-8.2)
--- NOTE | 2020-09-12 15:12 | NUR ---
Patient is sitting up in bed and eating food. Patient tells me that she is just out from a Gall Bladder removal surgery and is doing well and clearly focused on eating. I asked if I could say a prayer for her and let her get back to her food. Patient agrees and I gladly provide prayer. Patient responds well and showws signs of an elevated mood. I will continue to remain available to patient and family.
--- NOTE | 2020-09-12 19:34 | NUR ---
SHIFT SUMMARY: PATIENT A&O; CALM AND COOPERATIVE WITH CARE. LAP AMILCAR THIS SHIFT; 4X ABD INCISIONS C/D/I; VSS; MEDICATED FOR PAIN PER EMAR. PT UP WITH SBA TO BATHROOM. REPORT GIVEN TO ONCOMING RN.
--- NOTE | 2020-09-12 21:45 | NUR ---
AWAKE EARLIER. IVF OF LR INFUSING AT 100 ML/HR. INCISIONS OF ABD CDI. AFFECT WAS CHEERFUL. ORIENTED. CALL LIGHT IN REACH
--- NOTE | 2020-09-13 04:21 | NUR ---
SHIFT SUMMARY HAS BEEN RESTING QUIETLY WITH EFW INTERRUPTIONS. PAIN MEDS X 2 OF THIS WRITING. IVF INFUSING AT 100 ML/HR. ABD INCISIONS CDI. CALL LIGHT IN REACH
[2020-09-13] MEDS ORDERED: HYDR1TAB94 PO (12:35)
--- NOTE | 2020-09-13 13:39 | NUR ---
DISCHARGE NOTE THIS RN REMOVED PT IV PER INVERVENTION DOCUMENTATION. THIS RN REVIEWED DC INSTRUCTIONS AND MEDICATIONS WITH PT WHO VERBALIZED AN UNDERSTANDING OF DC INSTRUCTIONS. THIS RN FAXED PT MEDICATIONS TO [facility] IN [facility]. THIS RN HANDED WRITTEN PRESCRIPTION SCRIPT TO PT AND PT PLACED SCRIPT IN DC PACKET FOLDER. PT DRESSED SELF IN HOME CLOTHING. ORDER PULLER WHEELED PT TO ER ENTRANCE FOR DC WITH PT BELONGINGS PRESENT AT APPROXIMATELY 1330. PT HAS LEFT THE BUILDING.
== END 2020-09-13 13:22 | disposition home or self-care (01) ==
LOC: ER 06:26 → MEDS 06:30 → ER 16:34 → MEDS 16:34
PROVIDERS: Emergency Medicine; Family Medicine; Internal Medicine; ADMIT Surgery
DX: K81.0 Acute cholecystitis (principal); K83.1 Obstruction of bile duct; E87.1 Hypo-osmolality and hyponatremia; T50.2X5A Adverse effect of carbonic-anhydrase inhibitors, benzothiadiazides and other diuretics, initial encounter; K21.9 Gastro-esophageal reflux disease without esophagitis; K31.84 Gastroparesis; I25.2 Old myocardial infarction; I25.10 Atherosclerotic heart disease of native coronary artery without angina pectoris; I10 Essential (primary) hypertension; G89.29 Other chronic pain; M54.9 Dorsalgia, unspecified; J44.9 Chronic obstructive pulmonary disease, unspecified; E78.5 Hyperlipidemia, unspecified; F17.210 Nicotine dependence, cigarettes, uncomplicated; N17.9 Acute kidney failure, unspecified; F31.9 Bipolar disorder, unspecified; G43.909 Migraine, unspecified, not intractable, without status migrainosus; E43 Unspecified severe protein-calorie malnutrition; Z88.8 Allergy status to other drugs, medicaments and biological substances; Z79.82 Long term (current) use of aspirin; Z79.899 Other long term (current) drug therapy; Z95.5 Presence of coronary angioplasty implant and graft; Z66 Do not resuscitate; Z20.828 Contact with and (suspected) exposure to other viral communicable diseases; Z68.1 Body mass index [BMI] 19.9 or less, adult; Z23 Encounter for immunization
CPT/HCPCS: 0097U; 0241U; 36415; 74177; 74300; 76705; 80053; 81001; 82947; 83690; 85025; 85610; 86301; 87086; 93005; 93010; 96374-59; 96375; 99285-25; A9270; A9270-GY; C1729; J0690; J1100; J1170; J1885; J2250; J2270; J2405; J2704; J2710; J3010; J7030; J7120; Q9967

== ENCOUNTER 2020-09-15 22:58 | Emergency (ER) | payer MEDICARE ==
[~2020-09-15] VITALS: Ht 165.1 cm; Wt 41.3 kg
[~2020-09-15 22:58] MED LIST changes: +ASPIR 8181 MG PO; +ATOR40TA PO; +CIPR500 PO; +HYDR1TAB94 PO; +Lisinopril-Hct1 EAC4 PO; +METR500 PO; +ONDA4ODT SL; +PHENERGAN25 MG PR; +TEMAZEPAM30 M1 PO
[2020-09-15 23:53] LABS: BASOPHILS ABSOLUTE AUTO 0.06 K/mm3 (0.00-0.23); BASOPHILS PERCENT AUTO 1 % (0-2); EOSINOPHILS ABSOLUTE AUTO 0.24 K/mm3 (0.00-0.68); EOSINOPHILS PERCENT AUTO 2 % (0-6); Hematocrit 34.4 % (33.0-51.0); Hemoglobin 11.4 g/dL (11.5-16.0); IMMATURE GRAN ABSOLUTE AUTO 0.05 K/mm3 (0.00-0.10); IMMATURE GRAN PERCENT AUTO 1 % (0-1); LYMPHOCYTES ABSOLUTE AUTO 0.86 K/mm3 (0.84-5.20); LYMPHOCYTES PERCENT AUTO 8 % (21-46); MONOCYTES ABSOLUTE AUTO 0.48 K/mm3 (0.16-1.47); MONOCYTES PERCENT AUTO 5 % (4-13); Mean Corpuscular HGB 31.5 pg (26.0-34.0); Mean Corpuscular HGB Conc 33.1 g/dL (31.5-36.5); Mean Corpuscular Volume 95 fL (80-100); Mean Platelet Volume 8.4 fL (9.1-12.4); NEUTROPHILS ABSOLUTE AUTO 9.02 K/mm3 (1.96-9.15); NEUTROPHILS PERCENT AUTO 84 % (41-73); Platelet Count 444 K/mm3 (150-400); RDW Standard Deviation 45.6 fL (35.1-46.3); Red Blood Cell Count 3.62 M/mm3 (3.80-5.20); White Blood Cell Count 10.71 K/mm3 (4.00-11.30)
[2020-09-16 00:11] LABS: Alanine Aminotransfer (ALT/SGP 24 U/L (12-78); Albumin, Blood 3.2 g/dL (3.4-5.0); Albumin/Globulin Ratio 0.8 (0.8-1.8); Alk Phos 179 U/L (50-136); Anion Gap 9 mmol/L (6-16); Aspartate Aminotrans (AST/SGOT 44 U/L (12-37); Bilirubin, Total 0.3 mg/dL (0.1-1.0); Blood Urea Nitrogen 13 mg/dL (8-24); Bun/Creatinine Ratio 14.9 (12.0-20.0); CO2, Blood 29 mmol/L (21-32); Calcium, Blood 9.5 mg/dL (8.5-10.1); Chloride, Blood 96 mmol/L (98-108); Creatinine, Blood 0.87 mg/dL (0.40-1.00); Globulin, Blood 3.8 g/dL (2.2-4.0); Glomerular Filtration Rate >60 (60-); Glucose, Blood 130 mg/dL (70-99); Potassium, Blood 3.7 mmol/L (3.5-5.5); Sodium, Blood 134 mmol/L (136-145)
[2020-09-16] MEDS ORDERED: PROC5 PO (00:26)
== END 2020-09-16 00:53 | disposition home or self-care (01) ==
LOC: ER 22:58
PROVIDERS: Emergency Medicine
DX: R11.2 Nausea with vomiting, unspecified (principal); Z79.82 Long term (current) use of aspirin; Z90.49 Acquired absence of other specified parts of digestive tract; Z88.8 Allergy status to other drugs, medicaments and biological substances; Z79.899 Other long term (current) drug therapy; I10 Essential (primary) hypertension; J44.9 Chronic obstructive pulmonary disease, unspecified; F32.9 Major depressive disorder, single episode, unspecified; F17.200 Nicotine dependence, unspecified, uncomplicated
CPT/HCPCS: 74022; 80053; 83690; 85025; 96374; 99284-25; J0780; J7030

== ENCOUNTER 2020-11-10 10:07 | Day surgery (SDC) | payer MEDICARE ==
[~2020-11-10] VITALS: Ht 160 cm; Wt 41.2 kg
[~2020-11-10 10:07] MED LIST changes: +ALBU90OI INH; +ASCO500 PO; +ATORVASTATIN CA40 MG PO; +Aspir 8181 MG PO; +EPIPEN 2-P0.3 MG/0.1 IM; +FEROSUL325 MG PO; +KEPPRA250 M1 PO; +MULTI-VITAMIN1 EAC2 PO; +NITROGLYCERIN0.4 M2 SL; +ONDA4ODT PO; +PROC5 PO; +PROM25 PO; +PROMETHEGAN12.5 MG PR; +Ranitidine HCl150 M1 PO; +SYMBICORT 160-4.6 GM INH
== END 2020-11-10 12:09 | disposition home or self-care (01) ==
LOC: ORSCSDS 10:07
PROVIDERS: Internal Medicine Gastroenterology
PROC: 0DBH8ZX Excision of Cecum, Via Natural or Artificial Opening Endoscopic, Diagnostic (ICD-10-PCS; principal; 2020-11-10 11:30)
DX: Z12.11 Encounter for screening for malignant neoplasm of colon (principal); D12.0 Benign neoplasm of cecum; K64.8 Other hemorrhoids; K57.30 Diverticulosis of large intestine without perforation or abscess without bleeding; E78.5 Hyperlipidemia, unspecified; D64.9 Anemia, unspecified; F31.9 Bipolar disorder, unspecified; F17.210 Nicotine dependence, cigarettes, uncomplicated; Z79.899 Other long term (current) drug therapy
CPT/HCPCS: 88305; J2704; J7120

== ENCOUNTER 2020-12-20 10:37 | Observation (INO) | payer MEDICARE ==
[~2020-12-20] VITALS: Ht 160 cm; Wt 38.8 kg
[2020-12-20 11:14] LABS: BASOPHILS ABSOLUTE AUTO 0.06 K/mm3 (0.00-0.23); BASOPHILS PERCENT AUTO 1 % (0-2); EOSINOPHILS ABSOLUTE AUTO 0.12 K/mm3 (0.00-0.68); EOSINOPHILS PERCENT AUTO 1 % (0-6); Hematocrit 33.6 % (33.0-51.0); Hemoglobin 11.2 g/dL (11.5-16.0); IMMATURE GRAN ABSOLUTE AUTO 0.02 K/mm3 (0.00-0.10); IMMATURE GRAN PERCENT AUTO 0 % (0-1); LYMPHOCYTES ABSOLUTE AUTO 1.42 K/mm3 (0.84-5.20); LYMPHOCYTES PERCENT AUTO 17 % (21-46); MONOCYTES ABSOLUTE AUTO 0.91 K/mm3 (0.16-1.47); MONOCYTES PERCENT AUTO 11 % (4-13); Mean Corpuscular HGB Conc 33.3 g/dL (31.5-36.5); Mean Corpuscular Volume 90 fL (80-100); Mean Platelet Volume 8.7 fL (9.1-12.4); NEUTROPHILS ABSOLUTE AUTO 5.92 K/mm3 (1.96-9.15); NEUTROPHILS PERCENT AUTO 70 % (41-73); Platelet Count 342 K/mm3 (150-400); RDW Coefficient Variation 14.8 % (11.7-14.2); RDW Standard Deviation 48.6 fL (35.1-46.3); Red Blood Cell Count 3.73 M/mm3 (3.80-5.20); White Blood Cell Count 8.45 K/mm3 (4.00-11.30)
[2020-12-20 11:39] LABS: Alanine Aminotransfer (ALT/SGP 69 U/L (12-78); Albumin/Globulin Ratio 1.2 (0.8-1.8); Alk Phos 104 U/L (50-136); Anion Gap 9 mmol/L (6-16); Aspartate Aminotrans (AST/SGOT 67 U/L (12-37); Bilirubin, Total 0.4 mg/dL (0.1-1.0); Blood Urea Nitrogen 20 mg/dL (8-24); Bun/Creatinine Ratio 18.5 (12.0-20.0); CO2, Blood 26 mmol/L (21-32); Calcium, Blood 9.1 mg/dL (8.5-10.1); Chloride, Blood 97 mmol/L (98-108); Creatinine, Blood 1.08 mg/dL (0.40-1.00); Globulin, Blood 3.4 g/dL (2.2-4.0); Glomerular Filtration Rate 54 (60-); Glucose, Blood 106 mg/dL (70-99); Potassium, Blood 2.8 mmol/L (3.5-5.5); Sodium, Blood 132 mmol/L (136-145); Total Protein, Blood 7.4 g/dL (6.4-8.2); Troponin I <0.015 ng/mL (0.000-0.040)
--- NOTE | 2020-12-20 18:19 | NUR ---
PT AOX4 AND COOPERATIVE OF CARE. PT IS INDEPENDENT, BUT NEEDS SOME ASSISTANCE WITH IV POLE. PT DENIES ANY PAIN AT THIS TIME. CALL LIGHT IS WITHIN REACH WILL CONTINUE TO MONITOR.
--- NOTE | 2020-12-20 19:05 | NUR ---
ASSUMED CARE RECEIVED REPORT FROM ОЛЬГА PETTIT. PT RESTING, IN NO ACUTE DISTRESS. NO ACUTE NEEDS ASSESSED AT THIS TIME. IV K-RIDER INFUSING. CONTINUE TO MONITOR.
[2020-12-20 23:19] LABS: Troponin I <0.015 ng/mL (0.000-0.040)
[2020-12-20 23:34] LABS: Potassium, Blood 4.8 mmol/L (3.5-5.5)
[2020-12-21 04:40] LABS: Hematocrit 35.2 % (33.0-51.0); Hemoglobin 11.5 g/dL (11.5-16.0); Mean Corpuscular HGB 30.2 pg (26.0-34.0); Mean Corpuscular HGB Conc 32.7 g/dL (31.5-36.5); Mean Corpuscular Volume 92 fL (80-100); Mean Platelet Volume 8.7 fL (9.1-12.4); Platelet Count 348 K/mm3 (150-400); RDW Coefficient Variation 15.2 % (11.7-14.2); RDW Standard Deviation 51.4 fL (35.1-46.3); Red Blood Cell Count 3.81 M/mm3 (3.80-5.20); White Blood Cell Count 5.53 K/mm3 (4.00-11.30)
[2020-12-21 04:59] LABS: Bun/Creatinine Ratio 18.2 (12.0-20.0); Calcium, Blood 8.8 mg/dL (8.5-10.1); Creatinine, Blood 0.99 mg/dL (0.40-1.00); Magnesium, Blood 1.9 mg/dL (1.6-2.4)
--- NOTE | 2020-12-21 06:50 | NUR ---
FASHION PHOTOGRAPHER SUMMARY PT ASLEEP, IN NO ACUTE DISTRESS, VS REVIEWED, WNL. NO ACUTE CHANGES IN CONDITION NOTED THROUGHOUT THE NIGHT, PT HAS BEEN NPO SINCE MIDNIGHT FOR UPCOMING STRATEGIC MANAGER PROCEDURE TODAY. NO ACUTE NEEDS ASSESSED AT THIS TIME. CALL LIGHT, POSSESSIONS IN REACH, REPORT GIVEN TO ОЛЬГА BRADSHAW.
--- NOTE | 2020-12-21 10:34 | NUR ---
COVID SCREEN: SPOKE WITH THE HEART CENTER. PATIENT IS MISSING HER COVID SCREEN. NEW ORDER FOR RAPID COVID TEST ENTERED.
[2020-12-21 12:31] LABS: Influenza A, PCR NEGATIVE (NEGATIVE); Influenza B, PCR NEGATIVE (NEGATIVE); Resp Syncytial Virus, PCR NEGATIVE (NEGATIVE); SARS-Cov-2 (COVID-19) PCR, MMC NEGATIVE (NEGATIVE)
--- NOTE | 2020-12-21 13:06 | NUR ---
TRANSFER TO HEART CENTER: PATIENT TRANSFERRED OFF UNIT TO [facility] AROUND 12:45. PATIENT ALERT, ORIENTED AND HAS BEEN EDUCATED ON THE PROCEDURE. PATIENT DENIED PAIN OR DISCOMFORT THROUGHOUT THE SHIFT. PATIENT STABLE ON HER FEET AND INDEPENDENT IN THE ROOM. DISCUSSED TOBACCO CESSATION WITH THE PATIENT AND PROVIDED PRINTED INFORMATION. PATIENT APPRECIATIVE OF THE CARE RECEIVED HERE. PATIENT STABLE AT TIME OF TRANSFER.
--- NOTE | 2020-12-21 17:55 | NUR ---
SHIFT SUMMARY NO ACUTE EVENTS THIS HALF OF SHIFT. PATIENT ARRIVED FROM HEART CENTER, TR BAND IN PLACE. NO ADDITIONAL DISCHARGE NOTED AT RADIAL SITE. PATIENT IN SINUS BRADYCARDIA TO NSR. PATIENT IS HYPERTENSIVE AT TIMES. ALERT AND ORIENTED, COOPERATIVE WITH CARE. PATIENT IS SBA TO BATHROOM FOR LINE MANAGEMENT, PATIENT DENIES CHEST PAIN/PRESSURE.
--- NOTE | 2020-12-22 05:25 | NUR ---
SHIFT SUMMARY NO ACUTE CHANGES THIS SHIFT. PT A&OX4. SP02>92% ON RA. TELEMETRY READS SR/SB, HR 50'S-60'S. PT HAS R RADIAL SITE, DRESSING CHANGED TO OPSITE. SLIGHT BLOOD ON BANDAGE THAT WAS REMOVED. BRUISING ON PT'S ARM/HAND, NO HEMATOMA, NO ACTIVE BLEEDING, SITE SOFT. ARM BOARD IN PLACE T/O NIGHT. PT DENIED PAIN. PT INDEPENDENT IN ROOM. CALL LIGHT IN REACH. WILL GIVE REPORT TO ONCOMING NURSE.
[2020-12-22] MEDS ORDERED: CLOP75 PO (11:31)
[2020-12-22] MEDS ORDERED: Prinivil10 MG PO (11:31)
[2020-12-22] MEDS ORDERED: METO25 PO (11:32)
--- NOTE | 2020-12-22 12:20 | NUR ---
PATIENT DENIED CHEST PAIN/PRESSURE, ALERT AND ORIENTED, INDEPENDENT IN ROOM. PATIENT PROVIDED DISCHARGE INFO REGARDING FOLLOW UP PLANS WITH PRIMARY CARE AND WITH CARDIOLOGY, REASONS TO RETURN TO THE HOSPITAL, MEDICATION INFORMATION, AND RADIAL SITE CARE AND MOVEMENT RESTRICTIONS. PATIENT VERBALIZED UNDERSTANDING, NO SIGNS OF ACUTE DISTRESS.
== END 2020-12-22 12:55 | disposition home or self-care (01) ==
LOC: ER 10:37 → MEDS 10:38 → PCU 12-21 15:03
PROVIDERS: Emergency Medicine; Nurse Practitioner Acute Care; ADMIT Family Medicine
DX: T82.855A Stenosis of coronary artery stent, initial encounter (principal); I25.10 Atherosclerotic heart disease of native coronary artery without angina pectoris; J44.9 Chronic obstructive pulmonary disease, unspecified; R64 Cachexia; I25.2 Old myocardial infarction; I10 Essential (primary) hypertension; E87.6 Hypokalemia; K31.84 Gastroparesis; K52.9 Noninfective gastroenteritis and colitis, unspecified; E78.5 Hyperlipidemia, unspecified; K21.9 Gastro-esophageal reflux disease without esophagitis; F17.210 Nicotine dependence, cigarettes, uncomplicated; M81.0 Age-related osteoporosis without current pathological fracture; Z68.1 Body mass index [BMI] 19.9 or less, adult; Z88.8 Allergy status to other drugs, medicaments and biological substances; Z95.5 Presence of coronary angioplasty implant and graft; Z79.82 Long term (current) use of aspirin; Z20.822 Contact with and (suspected) exposure to COVID-19; Y71.8 Miscellaneous cardiovascular devices associated with adverse incidents, not elsewhere classified; D50.9 Iron deficiency anemia, unspecified
CPT/HCPCS: 0241U; 36415; 71046; 80048; 80053; 83690; 83735; 84132; 84484; 85025; 85027; 85347; 92978; 93005; 93010; 93458; 93571; 93572; 94640; 94760; 96372; 99152; 99153; 99285-25; A9270; C1725; C1753; C1769; C1874; C1887; C1894; C9600; G0378; J1644; J1650; J2250; J2405; J3010; J3480; J7030; J7040; J7050; Q9967

== ENCOUNTER 2021-04-13 12:07 | Emergency (ER) | payer MEDICARE ==
[~2021-04-13] VITALS: Ht 160 cm; Wt 37.2 kg
[~2021-04-13 12:07] MED LIST changes: +CLOP75 PO; +METO25 PO; +Prinivil10 MG PO
[2021-04-13 12:59] LABS: BASOPHILS ABSOLUTE AUTO 0.04 K/mm3 (0.00-0.23); BASOPHILS PERCENT AUTO 1 % (0-2); EOSINOPHILS ABSOLUTE AUTO 0.14 K/mm3 (0.00-0.68); EOSINOPHILS PERCENT AUTO 2 % (0-6); Hematocrit 19.8 % (33.0-51.0); Hemoglobin 6.1 g/dL (11.5-16.0); IMMATURE GRAN ABSOLUTE AUTO 0.05 K/mm3 (0.00-0.10); IMMATURE GRAN PERCENT AUTO 1 % (0-1); LYMPHOCYTES ABSOLUTE AUTO 1.72 K/mm3 (0.84-5.20); LYMPHOCYTES PERCENT AUTO 23 % (21-46); MONOCYTES ABSOLUTE AUTO 0.61 K/mm3 (0.16-1.47); MONOCYTES PERCENT AUTO 8 % (4-13); Mean Corpuscular HGB 28.2 pg (26.0-34.0); Mean Corpuscular HGB Conc 30.8 g/dL (31.5-36.5); Mean Corpuscular Volume 92 fL (80-100); Mean Platelet Volume 8.6 fL (9.1-12.4); NEUTROPHILS PERCENT AUTO 65 % (41-73); Platelet Count 301 K/mm3 (150-400); RDW Coefficient Variation 16.7 % (11.7-14.2); Red Blood Cell Count 2.16 M/mm3 (3.80-5.20); White Blood Cell Count 7.36 K/mm3 (4.00-11.30)
[2021-04-13 13:22] LABS: Alanine Aminotransfer (ALT/SGP 19 U/L (12-78); Albumin, Blood 3.2 g/dL (3.4-5.0); Alk Phos 109 U/L (50-136); Anion Gap 4 mmol/L (6-16); Aspartate Aminotrans (AST/SGOT 34 U/L (12-37); Bilirubin, Total 0.1 mg/dL (0.1-1.0); Blood Urea Nitrogen 29 mg/dL (8-24); Bun/Creatinine Ratio 26.9 (12.0-20.0); CO2, Blood 27 mmol/L (21-32); Calcium, Blood 8.7 mg/dL (8.5-10.1); Chloride, Blood 105 mmol/L (98-108); Creatinine, Blood 1.08 mg/dL (0.40-1.00); Globulin, Blood 3.3 g/dL (2.2-4.0); Glomerular Filtration Rate 54 (60-); Glucose, Blood 84 mg/dL (70-99); Sodium, Blood 136 mmol/L (136-145); Total Protein, Blood 6.5 g/dL (6.4-8.2); Troponin I <0.015 ng/mL (0.000-0.040)
[2021-04-13] MEDS ORDERED: ESCI20 PO (14:30)
[2021-04-13] MEDS ORDERED: Lisinopril-Hct1 EAC4 PO (14:30)
[2021-04-13 14:52] LABS: International Normalized Ratio 0.9; Prothrombin Time Results 9.8 Sec (9.7-11.5)
[2021-04-13 15:55] LABS: Source, Urine Clean Catch
[2021-04-13 15:59] LABS: Appearance, Urine Clear (Clear); Bilirubin, Urine Neg (Neg); Blood, Urine Neg (Neg); Color, Urine Yellow (P-Yellow); Glucose Qualitative, Urine Neg (Neg); Ketones, Urine Neg (Neg); Leukocyte Esterase, Urine 1+ (Neg); Nitrite, Urine Neg (Neg); Protein, Urine 1+ (Neg); Urobilinogen, Urine NORM (Normal)
[2021-04-13 16:48] LABS: Bacteria Few /hpf; Red Blood Cells, Urine Not Seen /hpf (0-2); Squamous Epithelial Cells Rare /hpf (Few); White Blood Cells, Urine 0-2 /hpf (0-5)
== END 2021-04-13 19:23 | disposition home or self-care (01) ==
LOC: ER 12:07
PROVIDERS: Physician Assistant; Student in an Organized Health Care Education/Training Program
DX: D64.9 Anemia, unspecified (principal); I10 Essential (primary) hypertension; J44.9 Chronic obstructive pulmonary disease, unspecified; E78.5 Hyperlipidemia, unspecified; F17.200 Nicotine dependence, unspecified, uncomplicated; Z88.8 Allergy status to other drugs, medicaments and biological substances; Z79.82 Long term (current) use of aspirin; Z79.899 Other long term (current) drug therapy
CPT/HCPCS: 36415; 36430; 80053; 81001; 82140; 83690; 84484; 85025; 85610; 85730; 86850; 86900; 86901; 86923; 87086; 93005; 93010; 99284-25; J7030; P9016

== ENCOUNTER 2021-07-03 11:14 | Emergency (ER) | payer MEDICARE ==
[~2021-07-03] VITALS: Ht 160 cm; Wt 40.4 kg
[2021-07-03 12:18] LABS: BASOPHILS ABSOLUTE AUTO 0.05 K/mm3 (0.00-0.23); BASOPHILS PERCENT AUTO 1 % (0-2); EOSINOPHILS ABSOLUTE AUTO 0.06 K/mm3 (0.00-0.68); EOSINOPHILS PERCENT AUTO 1 % (0-6); Hemoglobin 6.5 g/dL (11.5-16.0); IMMATURE GRAN ABSOLUTE AUTO 0.01 K/mm3 (0.00-0.10); IMMATURE GRAN PERCENT AUTO 0 % (0-1); LYMPHOCYTES ABSOLUTE AUTO 0.79 K/mm3 (0.84-5.20); LYMPHOCYTES PERCENT AUTO 19 % (21-46); MONOCYTES ABSOLUTE AUTO 0.57 K/mm3 (0.16-1.47); MONOCYTES PERCENT AUTO 14 % (4-13); Mean Corpuscular HGB 28.9 pg (26.0-34.0); Mean Corpuscular HGB Conc 29.5 g/dL (31.5-36.5); Mean Corpuscular Volume 98 fL (80-100); Mean Platelet Volume 9.4 fL (9.1-12.4); NEUTROPHILS ABSOLUTE AUTO 2.67 K/mm3 (1.96-9.15); NEUTROPHILS PERCENT AUTO 65 % (41-73); Platelet Count 280 K/mm3 (150-400); RDW Coefficient Variation 25.2 % (11.7-14.2); RDW Standard Deviation 86.9 fL (35.1-46.3); Red Blood Cell Count 2.25 M/mm3 (3.80-5.20); White Blood Cell Count 4.15 K/mm3 (4.00-11.30)
[2021-07-03 12:38] LABS: Albumin, Blood 3.2 g/dL (3.4-5.0); Bilirubin, Total 0.2 mg/dL (0.1-1.0); Bun/Creatinine Ratio 11.2 (12.0-20.0); Calcium, Blood 8.5 mg/dL (8.5-10.1); Creatinine, Blood 1.16 mg/dL (0.40-1.00); Globulin, Blood 3.1 g/dL (2.2-4.0); Potassium, Blood 3.4 mmol/L (3.5-5.5); Total Protein, Blood 6.3 g/dL (6.4-8.2)
[2021-07-03 15:18] LABS: Percent Saturation 2.7 % (15.0-50.0)
== END 2021-07-03 19:49 | disposition home or self-care (01) ==
LOC: ER 11:14
PROVIDERS: Physician Assistant
DX: D50.9 Iron deficiency anemia, unspecified (principal); F17.200 Nicotine dependence, unspecified, uncomplicated; Z88.8 Allergy status to other drugs, medicaments and biological substances; Z79.899 Other long term (current) drug therapy; Z79.02 Long term (current) use of antithrombotics/antiplatelets; Z79.82 Long term (current) use of aspirin
CPT/HCPCS: 36415; 80053; 82728; 83540; 83550; 85025; 86850; 86900; 86901; 86923; 93005; 93010; 99284-25; J7030; P9016

== ENCOUNTER 2021-07-10 15:23 | Emergency (ER) | payer MEDICARE ==
[~2021-07-10] VITALS: Ht 160 cm; Wt 40.4 kg
[2021-07-10 17:06] LABS: BASOPHILS ABSOLUTE AUTO 0.08 K/mm3 (0.00-0.23); BASOPHILS PERCENT AUTO 2 % (0-2); EOSINOPHILS ABSOLUTE AUTO 0.03 K/mm3 (0.00-0.68); EOSINOPHILS PERCENT AUTO 1 % (0-6); Hematocrit 29.4 % (33.0-51.0); Hemoglobin 9.3 g/dL (11.5-16.0); IMMATURE GRAN ABSOLUTE AUTO 0.02 K/mm3 (0.00-0.10); IMMATURE GRAN PERCENT AUTO 0 % (0-1); LYMPHOCYTES ABSOLUTE AUTO 1.18 K/mm3 (0.84-5.20); LYMPHOCYTES PERCENT AUTO 24 % (21-46); MONOCYTES ABSOLUTE AUTO 0.52 K/mm3 (0.16-1.47); MONOCYTES PERCENT AUTO 11 % (4-13); Mean Corpuscular HGB 29.7 pg (26.0-34.0); Mean Corpuscular HGB Conc 31.6 g/dL (31.5-36.5); Mean Corpuscular Volume 94 fL (80-100); Mean Platelet Volume 9.3 fL (9.1-12.4); NEUTROPHILS ABSOLUTE AUTO 3.13 K/mm3 (1.96-9.15); NEUTROPHILS PERCENT AUTO 63 % (41-73); Platelet Count 295 K/mm3 (150-400); RDW Coefficient Variation 20.2 % (11.7-14.2); RDW Standard Deviation 69.7 fL (35.1-46.3); Red Blood Cell Count 3.13 M/mm3 (3.80-5.20); White Blood Cell Count 4.96 K/mm3 (4.00-11.30)
[2021-07-10 17:54] LABS: Albumin, Blood 3.6 g/dL (3.4-5.0); Albumin/Globulin Ratio 1.2 (0.8-1.8); Bilirubin, Total 0.3 mg/dL (0.1-1.0); Bun/Creatinine Ratio 20.8 (12.0-20.0); Calcium, Blood 9.1 mg/dL (8.5-10.1); Creatinine, Blood 1.2 mg/dL (0.40-1.00); Globulin, Blood 3.1 g/dL (2.2-4.0); Potassium, Blood 3.9 mmol/L (3.5-5.5); Total Protein, Blood 6.7 g/dL (6.4-8.2)
[2021-07-10] MEDS ORDERED: ONDA4ODT MM (18:47)
== END 2021-07-10 19:05 | disposition home or self-care (01) ==
LOC: ER 15:23
PROVIDERS: Physician Assistant
DX: R51.9 Headache, unspecified (principal); I10 Essential (primary) hypertension; I25.2 Old myocardial infarction; I25.10 Atherosclerotic heart disease of native coronary artery without angina pectoris; J44.9 Chronic obstructive pulmonary disease, unspecified; E78.5 Hyperlipidemia, unspecified; D50.9 Iron deficiency anemia, unspecified; K21.9 Gastro-esophageal reflux disease without esophagitis; F17.200 Nicotine dependence, unspecified, uncomplicated; Z88.8 Allergy status to other drugs, medicaments and biological substances; Z79.899 Other long term (current) drug therapy; Z79.02 Long term (current) use of antithrombotics/antiplatelets; Z79.82 Long term (current) use of aspirin
CPT/HCPCS: 36415; 80053; 85025; 86850; 86900; 86901; J1200; J1790; J1885

== ENCOUNTER 2021-08-04 09:54 | Day surgery (SDC) | payer MEDICARE ==
[~2021-08-04] VITALS: Ht 160 cm; Wt 35.6 kg
--- NOTE | 2021-08-04 10:48 | NUR ---
08/04/21 1048 Kimmie Reich PT. GIVEN ZOFRAN PER DR. MCKEE. PT. C/O NAUSEA.
== END 2021-08-04 12:21 | disposition home or self-care (01) ==
LOC: ORSCSDS 09:54
PROVIDERS: Internal Medicine Gastroenterology
PROC: 0D578ZZ Destruction of Stomach, Pylorus, Via Natural or Artificial Opening Endoscopic (ICD-10-PCS; principal; 2021-08-04 11:15)
DX: R11.0 Nausea (principal); K31.84 Gastroparesis; Q27.33 Arteriovenous malformation of digestive system vessel; K92.1 Melena; I25.2 Old myocardial infarction; I25.10 Atherosclerotic heart disease of native coronary artery without angina pectoris; J44.9 Chronic obstructive pulmonary disease, unspecified; F17.210 Nicotine dependence, cigarettes, uncomplicated; Z79.899 Other long term (current) drug therapy; Z79.02 Long term (current) use of antithrombotics/antiplatelets
CPT/HCPCS: J2250; J2405; J2704; J3010; J7120

== ENCOUNTER 2021-10-27 18:30 | Inpatient (IN) | payer MEDICARE ==
[~2021-10-27] VITALS: Ht 162.6 cm; Wt 37.3 kg
[2021-10-27 19:06] LABS: BASOPHILS ABSOLUTE AUTO 0.04 K/mm3 (0.00-0.23); BASOPHILS PERCENT AUTO 1 % (0-2); EOSINOPHILS ABSOLUTE AUTO 0.12 K/mm3 (0.00-0.68); EOSINOPHILS PERCENT AUTO 2 % (0-6); Hematocrit 18.9 % (33.0-51.0); IMMATURE GRAN ABSOLUTE AUTO 0.02 K/mm3 (0.00-0.10); IMMATURE GRAN PERCENT AUTO 0 % (0-1); LYMPHOCYTES ABSOLUTE AUTO 1.05 K/mm3 (0.84-5.20); LYMPHOCYTES PERCENT AUTO 16 % (21-46); MONOCYTES PERCENT AUTO 12 % (4-13); Mean Corpuscular HGB 22.4 pg (26.0-34.0); Mean Corpuscular HGB Conc 29.1 g/dL (31.5-36.5); Mean Corpuscular Volume 77 fL (80-100); Mean Platelet Volume 11.2 fL (9.1-12.4); NEUTROPHILS ABSOLUTE AUTO 4.47 K/mm3 (1.96-9.15); NEUTROPHILS PERCENT AUTO 69 % (41-73); Platelet Count 180 K/mm3 (150-400); RDW Coefficient Variation 19.5 % (11.7-14.2); RDW Standard Deviation 53.4 fL (35.1-46.3); Red Blood Cell Count 2.45 M/mm3 (3.80-5.20)
[2021-10-27 19:11] LABS: Hemoglobin 5.5 g/dL (11.5-16.0)
[2021-10-27] MEDS ORDERED: K-Dur10 MEQ (19:26)
[2021-10-27] MEDS ORDERED: Phenergan25 M1 (19:26)
[2021-10-27] MEDS ORDERED: OMEP20ER PO (19:26)
[2021-10-27 19:29] LABS: International Normalized Ratio 0.95
[2021-10-27 19:29] LABS: Albumin, Blood 3.3 g/dL (3.4-5.0); Albumin/Globulin Ratio 1.2 (0.8-1.8); Bilirubin, Total 0.5 mg/dL (0.1-1.0); Bun/Creatinine Ratio 29.6 (12.0-20.0); Calcium, Blood 8.4 mg/dL (8.5-10.1); Creatinine, Blood 1.08 mg/dL (0.40-1.00); Globulin, Blood 2.8 g/dL (2.2-4.0); Magnesium, Blood 2.3 mg/dL (1.6-2.4); Potassium, Blood 4.1 mmol/L (3.5-5.5); Total Protein, Blood 6.1 g/dL (6.4-8.2); Troponin I 0.11 ng/mL (0.000-0.040)
[2021-10-27 21:23] LABS: Percent Saturation 2.9 % (15.0-50.0)
--- NOTE | 2021-10-27 21:50 | NUR ---
ADMISSION PATIENT ARRIVED TO PCU 19 FROM ER. PATIENT MOVED HERSELF OVER TO PCU BED. PRBC AND PROTONIX GTT INFUSING UPON ARRIVAL. VSS. SLIGHTLY HYPERTENSIVE ON ADMIT WITH SBP 160s. PATIENT REPORTED MILD SHORTNESS OF BREATH, UPON ASSESSMENT FINE CRACKLES IN THE BASES NOTED. PATIENT ORIENTED TO ROOM AND CALL LIGHT SYSTEM.
[2021-10-28 01:35] LABS: Source, Urine Clean Catch
[2021-10-28 01:38] LABS: Bilirubin, Urine Neg (Neg); Blood, Urine Neg (Neg); Glucose Qualitative, Urine Neg (Neg); Ketones, Urine Neg (Neg); Leukocyte Esterase, Urine Neg (Neg); Nitrite, Urine Neg (Neg); Protein, Urine 2+ (Neg); Urobilinogen, Urine NORM (Normal); pH, Urine 6.5 (5.0-8.0)
[2021-10-28 01:47] LABS: Appearance, Urine Clear (Clear); Color, Urine Yellow (P-Yellow)
--- NOTE | 2021-10-28 01:54 | NUR ---
UPDATE TRANSFUSION REACTION @ 0025 DURING INFUSION OF FIRST UNIT OF BLOOD, PATIENT COMPLAINED OF MILD SHORTNESS OF BREATH. REASSESSED LUNG SOUNDS AND VITAL SIGNS. UNCHANGED LUNG SOUNDS AND SYSTOLIC BP INCREASED TO 180s-190s. INFUSION RATE DECREASED FROM 125 TO 90 AND O2 TITRATED TO 3L. PATIENT MAINTAINED MENTATION WITH NO OTHER COMPLAINTS OF POSSIBLE ADVERSE SIDE EFFECTS. DURING INITIATION OF SECOND UNIT OF BLOOD PATIENT CONTINUED TO COMPLAIN OF SHORTNESS OF BREATH, INFUSION THEN TURNED DOWN TO 75MLs. LUNG SOUNDS REASSESSED AND REMAIN UNCHANGED. DURING FIRST 15 MINUTES OF TRANSFUSION PATIENT NOTED TO HAVE AUDIBLE WHEEZES AND INCREASED WORK OF BREATHING. TRANSFUSION STOPPED AND ASSISTANT SCIENTIST NOTIFIED. DR. HARGROVE NOTIFIED IMMEDIATELY WITH NEW ORDERS FOR SOLUMEDROL AND PEPCID. EVEN AFTER ADMINISTRATION OF MEDICATIONS, PATIENT STATUS REMAIN UNCHANGED BUT BECOMING MORE LETHARGIC AND SOMNOLENT WITH INCREASE OXYGEN NEEDS. DR. HARGROVE CALLED AGAIN WITH NEW ORDERS FOR CONTINUED DOSES OF SOLUMEDROL, BENADRYL, LASIX, AND A CAPPS CATHETER. BLOOD SENT TO LAB PER PROTOCOL. PATIENT CURRENTLY ON BIPAP WITH SETTINGS AT 16/10FIO2 30% WITH SATS AT 96%. BP STARTING TO TREND DOWN WITH GOOD URINE OUTPUT IN CAPPS. PATIENT ABLE TO WAKE TO VERBAL STIMULI BUT STILL LETHARGIC AND CAN ANSWER QUESTIONS APPROPRIATELY.
[2021-10-28 01:59] LABS: Amorphous Light (0-Heavy); Bacteria Not Seen /hpf; Red Blood Cells, Urine Not Seen /hpf (0-2); Squamous Epithelial Cells Rare /hpf (Few); White Blood Cells, Urine Rare /hpf (0-5)
[2021-10-28 02:27] LABS: Base Excess Venous 0.4 mmol/L; Bicarbonate Venous 24.3 mmol/L (24.0-30.0); PCO2 Venous 48.9 mmHg (38-42); PO2 Venous 46.5 mmHg (38-42); pH Blood Venous 7.34 (7.34-7.37)
[2021-10-28 02:36] LABS: BASOPHILS ABSOLUTE AUTO 0.06 K/mm3 (0.00-0.23); BASOPHILS PERCENT AUTO 1 % (0-2); EOSINOPHILS ABSOLUTE AUTO 0.06 K/mm3 (0.00-0.68); EOSINOPHILS PERCENT AUTO 1 % (0-6); Hemoglobin 8.7 g/dL (11.5-16.0); IMMATURE GRAN ABSOLUTE AUTO 0.04 K/mm3 (0.00-0.10); IMMATURE GRAN PERCENT AUTO 0 % (0-1); LYMPHOCYTES ABSOLUTE AUTO 0.69 K/mm3 (0.84-5.20); LYMPHOCYTES PERCENT AUTO 6 % (21-46); MONOCYTES ABSOLUTE AUTO 0.67 K/mm3 (0.16-1.47); MONOCYTES PERCENT AUTO 6 % (4-13); Mean Corpuscular HGB 24.2 pg (26.0-34.0); Mean Corpuscular Volume 81 fL (80-100); Mean Platelet Volume 11.4 fL (9.1-12.4); NEUTROPHILS ABSOLUTE AUTO 9.37 K/mm3 (1.96-9.15); NEUTROPHILS PERCENT AUTO 86 % (41-73); Platelet Count 191 K/mm3 (150-400); RDW Coefficient Variation 18.6 % (11.7-14.2); RDW Standard Deviation 54.5 fL (35.1-46.3); Red Blood Cell Count 3.59 M/mm3 (3.80-5.20); White Blood Cell Count 10.89 K/mm3 (4.00-11.30)
[2021-10-28 02:47] LABS: Bun/Creatinine Ratio 32.3 (12.0-20.0); Calcium, Blood 8.4 mg/dL (8.5-10.1); Creatinine, Blood 0.96 mg/dL (0.40-1.00); Potassium, Blood 4.3 mmol/L (3.5-5.5)
--- NOTE | 2021-10-28 06:25 | NUR ---
SHIFT SUMMARY PATIENT REMAINS LETHARGIC BUT WAKES EASILY TO VERBAL STIMULI AND IS ABLE TO ANSWER QUESTIONS APPROPRIATELY. VSS BUT HAS HYPERTENSIVE EPISODES. PATIENT CURRENTLY ON RA WITH O2 SAT >90%, BIPAP REMAINS AT BEDSIDE. LUNG SOUNDS REASSESSED WITH CLEAR UPPER LOBES AND FINE CRACKLES IN THE BASES. PROTONIX GTT INFUSING. CAPPS DRAINING CLEAR URINE TO GRAVITY. NO OTHER SIGNIFICANT CHANGES SINCE PREVIOUS NOTE. WILL REPORT TO DAY SHIFT RN.
[2021-10-28 12:21] LABS: Hematocrit 28.2 % (33.0-51.0); Hemoglobin 8.6 g/dL (11.5-16.0)
--- NOTE | 2021-10-28 17:19 | NUR ---
EKG PLATE AND FRAME FILTER OPERATOR ALERTED THIS RN THAT PT HAD BEEN SHOWING INCREASED ST DEPRESSION IN ESPECIALLY V1-V3. EKG PERFORMED, COMPARED AGAINST EKG FROM ER, SOME INCREASE NOTED. ALERTED DR PINEDA. DISCUSSED TRENDING UPWARDS TROPONINS. DISCUSSED PT BEING ASYMPTOMATIC. DR PINEDA TO REVIEW CHART, ECHO FROM TODAY, AND ASSESS FROM THERE.
--- NOTE | 2021-10-28 17:26 | NUR ---
SHIFT SUMMARY SEE EKG NOTE. ASIDE FROM THIS INSTANCE. NO NEW CHANGES. PT AXO. IN SR. ON RA. DENYING CP/PRESSURE/SOB. HAD ONE SMALL BROWN BM. CAPPS PATENT AND DRAINING. PROTONIX GTT INFUSING. PT UP AND OOB INTO RECLINER TODAY. HAS BEEN RESTING OFF AND ON SHE STATES FEELING "EXHASTED". DOES NOT REMEMBER EVENTS FROM PREVIOUS NOC SHIFT. DR ROLON SAW PT TODAY, PLANS FOR SCOPE IN THE AM. OTHERWISE, PT USING CALL LIGHT APPROPRIATELY.
[2021-10-28 17:54] LABS: Hematocrit 26.4 % (33.0-51.0); Hemoglobin 8.1 g/dL (11.5-16.0)
[2021-10-28 23:52] LABS: Hematocrit 25.3 % (33.0-51.0); Hemoglobin 7.9 g/dL (11.5-16.0)
--- NOTE | 2021-10-29 05:24 | NUR ---
SHIFT SUMMARY PATIENT ALERT AND ORIENTED DURING THIS SHIFT. VSS. ON ROOM AIR. DENIES CHEST PAIN/SOB. NO BLACK TARRY STOOLS THIS SHIFT. CAPPS PATENT AND DRAINING CLEAR/YELLOW URINE TO GRAVITY. PATIENT HAS BEEN ALTERNATING BETWEEN BED AND CHAIR WITH MINIMAL ASSISTANCE WELL USING BEDSIDE COMMODE. PROTONIX GTT INFUSING. NO OTHER SIGNIFICANT CHANGES THIS SHIFT. WILL REPORT TO DAY SHIFT.
[2021-10-29 06:06] LABS: Hematocrit 27.3 % (33.0-51.0); Hemoglobin 8.4 g/dL (11.5-16.0); Mean Corpuscular HGB 24.5 pg (26.0-34.0); Mean Corpuscular HGB Conc 30.8 g/dL (31.5-36.5); Mean Corpuscular Volume 80 fL (80-100); Mean Platelet Volume 10.6 fL (9.1-12.4); Platelet Count 182 K/mm3 (150-400); RDW Coefficient Variation 19.3 % (11.7-14.2); RDW Standard Deviation 55.2 fL (35.1-46.3); Red Blood Cell Count 3.43 M/mm3 (3.80-5.20); White Blood Cell Count 11.27 K/mm3 (4.00-11.30)
[2021-10-29 06:32] LABS: Albumin, Blood 2.9 g/dL (3.4-5.0); Anion Gap 7 mmol/L (6-16); Blood Urea Nitrogen 21 mg/dL (8-24); Bun/Creatinine Ratio 21.5 (12.0-20.0); CO2, Blood 31 mmol/L (21-32); Calcium, Blood 8.5 mg/dL (8.5-10.1); Chloride, Blood 99 mmol/L (98-108); Creatinine, Blood 0.98 mg/dL (0.40-1.00); Glomerular Filtration Rate 57 (60-); Glucose, Blood 93 mg/dL (70-99); Phosphorus, Blood 2.4 mg/dL (2.5-4.9); Sodium, Blood 137 mmol/L (136-145); Troponin I 0.274 ng/mL (0.000-0.040)
--- NOTE | 2021-10-29 09:26 | NUR ---
TRANSFER TO OR NOTE PT LEFT PCU ROOM 19 AT APPROX. 0920, PT WAS STABLE UPON TRANSFER TO OR AND TRANSFERED VIA HOSPITAL BED ESCORTED BY EVELYN ROLON
--- NOTE | 2021-10-29 09:36 | NUR ---
PT TRANSFERED FROM FLOOR TO [facility] VIA GURNY. History, Chart, Medications and Allergies reviewed before start of procedure. Lungs clear T/O to Auscultation. Patient confirms NPO status and agrees with scheduled surgery. Pre-Op teaching done. Pt verbalizes understanding. RAPID COVID TEST DONE DUE TO PT NOT HAVING ONE DONE YET THIS VISIT.
--- NOTE | 2021-10-29 10:14 | NUR ---
10/29/21 1014 DANIELLE RIGGS History, Chart, Medications and Allergies reviewed before start of procedure. 3-LEAD EKG REVIEWED WITH PHYSICIAN PRIOR TO START OF PROCEDURE. O2 VIA POM INTACT THROUGHOUT SEDATION/PROCEDURE. BITE BLOCK/POM PLACED. GENERAL WITH DR. CARPENTER.
--- NOTE | 2021-10-29 15:51 | NUR ---
Pt is dcd home. She has no new med orders. All instructions were reviewed with her and she verbalized an understanding. Her IVs were removed with no issue. She packed her personal items and was assisted out to her ride. She was stable upon dc.
--- NOTE | 2021-10-29 16:24 | NUR ---
SHIFT SUMMARY/DISCHARGE NOTE PT WAS ALERT AND ORIENTED X 4 T/O SHIFT. VITAL SIGNS STABLE. PT ARRIVED FROM SCOPE PROCEDURE AT APPROX. 1105 AND WAS STABLE UPON ARRIVAL. SHE CONTINUED TO DENY CHEST PAIN/PRESSURE T/O SHIFT WELL NAUSEA/VOMITTING. NO ACUTE CHANGES NOTED. PT WAS DISCHARGED FROM EVELYN ROLON APPROX. 1545.
== END 2021-10-29 16:00 | disposition home or self-care (01) | DRG 377 ==
LOC: ER 18:30 → PCU 21:34
PROVIDERS: Family Medicine; Internal Medicine; Internal Medicine Gastroenterology; Student in an Organized Health Care Education/Training Program; ADMIT Family Medicine
PROC: 30233N1 Transfusion of Nonautologous Red Blood Cells into Peripheral Vein, Percutaneous Approach (ICD-10-PCS; 2021-10-27)
PROC: 5A09357 Assistance with Respiratory Ventilation, Less than 24 Consecutive Hours, Continuous Positive Airway Pressure (ICD-10-PCS; 2021-10-28)
PROC: 0W3P8ZZ Control Bleeding in Gastrointestinal Tract, Via Natural or Artificial Opening Endoscopic (ICD-10-PCS; principal; 2021-10-29 10:00)
DX: K55.21 Angiodysplasia of colon with hemorrhage (principal); I21.A1 Myocardial infarction type 2; E43 Unspecified severe protein-calorie malnutrition; D62 Acute posthemorrhagic anemia; Z68.1 Body mass index [BMI] 19.9 or less, adult; J70.8 Respiratory conditions due to other specified external agents; T80.89XA Other complications following infusion, transfusion and therapeutic injection, initial encounter; I12.9 Hypertensive chronic kidney disease with stage 1 through stage 4 chronic kidney disease, or unspecified chronic kidney disease; N18.30 Chronic kidney disease, stage 3 unspecified; R30.0 Dysuria; D50.9 Iron deficiency anemia, unspecified; M54.9 Dorsalgia, unspecified; G89.29 Other chronic pain; I25.10 Atherosclerotic heart disease of native coronary artery without angina pectoris; J44.9 Chronic obstructive pulmonary disease, unspecified; E78.5 Hyperlipidemia, unspecified; K21.9 Gastro-esophageal reflux disease without esophagitis; F31.9 Bipolar disorder, unspecified; I25.2 Old myocardial infarction; M81.0 Age-related osteoporosis without current pathological fracture; Z28.21 Immunization not carried out because of patient refusal; F17.210 Nicotine dependence, cigarettes, uncomplicated; Z88.8 Allergy status to other drugs, medicaments and biological substances; Z71.6 Tobacco abuse counseling; Z79.02 Long term (current) use of antithrombotics/antiplatelets; Z79.82 Long term (current) use of aspirin; Z79.899 Other long term (current) drug therapy; Z95.5 Presence of coronary angioplasty implant and graft; Z90.49 Acquired absence of other specified parts of digestive tract
CPT/HCPCS: 36415; 36430; 51703; 71045; 80048; 80053; 80069; 81001; 82272; 82607; 82728; 82746; 82803; 83540; 83550; 83735; 83880; 84484; 85014; 85018; 85025; 85027; 85610; 85730; 86850; 86900; 86901; 86923; 88305; 88342; 93005; 93010; 93306; 94660; 94762; 96374; 96375; 99285-25; A9270; C9113; J1200; J1940; J2001; J2250; J2405; J2704; J2930; J7030; J7120; P9016

== ENCOUNTER 2021-11-05 08:24 | Emergency (ER) | payer MEDICARE ==
[~2021-11-05] VITALS: Ht 160 cm; Wt 37.2 kg
[~2021-11-05 08:24] MED LIST changes: +K-Dur10 MEQ; +OMEP20ER PO; +Phenergan25 M1
[2021-11-05 09:01] LABS: BASOPHILS ABSOLUTE AUTO 0.07 K/mm3 (0.00-0.23); BASOPHILS PERCENT AUTO 1 % (0-2); EOSINOPHILS ABSOLUTE AUTO 0.14 K/mm3 (0.00-0.68); EOSINOPHILS PERCENT AUTO 2 % (0-6); Hemoglobin 7.8 g/dL (11.5-16.0); IMMATURE GRAN ABSOLUTE AUTO 0.03 K/mm3 (0.00-0.10); IMMATURE GRAN PERCENT AUTO 0 % (0-1); LYMPHOCYTES ABSOLUTE AUTO 0.91 K/mm3 (0.84-5.20); LYMPHOCYTES PERCENT AUTO 10 % (21-46); MONOCYTES ABSOLUTE AUTO 0.77 K/mm3 (0.16-1.47); MONOCYTES PERCENT AUTO 8 % (4-13); Mean Corpuscular HGB 24.1 pg (26.0-34.0); Mean Corpuscular Volume 81 fL (80-100); Mean Platelet Volume 10.2 fL (9.1-12.4); NEUTROPHILS ABSOLUTE AUTO 7.61 K/mm3 (1.96-9.15); NEUTROPHILS PERCENT AUTO 80 % (41-73); Platelet Count 308 K/mm3 (150-400); Red Blood Cell Count 3.23 M/mm3 (3.80-5.20); White Blood Cell Count 9.53 K/mm3 (4.00-11.30)
[2021-11-05 09:24] LABS: Albumin, Blood 3.3 g/dL (3.4-5.0); Albumin/Globulin Ratio 0.9 (0.8-1.8); Bilirubin, Total 0.3 mg/dL (0.1-1.0); Bun/Creatinine Ratio 32.5 (12.0-20.0); Calcium, Blood 8.7 mg/dL (8.5-10.1); Creatinine, Blood 0.99 mg/dL (0.40-1.00); Globulin, Blood 3.5 g/dL (2.2-4.0); Potassium, Blood 3.6 mmol/L (3.5-5.5); Total Protein, Blood 6.8 g/dL (6.4-8.2); Troponin I 0.078 ng/mL (0.000-0.040)
[2021-11-05] MEDS ORDERED: Lasix20 MG PO (10:14)
[2021-11-05] MEDS ORDERED: PROM25 PO (10:25)
== END 2021-11-05 10:32 | disposition home or self-care (01) ==
LOC: ER 08:24
PROVIDERS: Emergency Medicine
DX: I11.0 Hypertensive heart disease with heart failure (principal); I50.9 Heart failure, unspecified; K92.2 Gastrointestinal hemorrhage, unspecified; D64.9 Anemia, unspecified; I25.10 Atherosclerotic heart disease of native coronary artery without angina pectoris; I25.2 Old myocardial infarction; J44.9 Chronic obstructive pulmonary disease, unspecified; E78.5 Hyperlipidemia, unspecified; K21.9 Gastro-esophageal reflux disease without esophagitis; F17.210 Nicotine dependence, cigarettes, uncomplicated; Z88.8 Allergy status to other drugs, medicaments and biological substances; Z79.899 Other long term (current) drug therapy
CPT/HCPCS: 36415; 71046; 80053; 83880; 84484; 85025; 93005; 93010; 96374; 99284-25; A9270; J2405

== ENCOUNTER 2021-12-13 11:30 | Day surgery (SDC) | payer MEDICARE ==
[~2021-12-13] VITALS: Ht 162.6 cm; Wt 38.7 kg
[~2021-12-13 11:30] MED LIST changes: +Lasix20 MG PO
== END 2021-12-13 12:38 | disposition home or self-care (01) ==
LOC: ORSCSDS 11:30
PROVIDERS: Internal Medicine Gastroenterology
PROC: 0DJ08ZZ Inspection of Upper Intestinal Tract, Via Natural or Artificial Opening Endoscopic (ICD-10-PCS; principal; 2021-12-13 12:00)
DX: K92.1 Melena (principal); D64.9 Anemia, unspecified; I10 Essential (primary) hypertension; I25.2 Old myocardial infarction; I25.10 Atherosclerotic heart disease of native coronary artery without angina pectoris; K21.9 Gastro-esophageal reflux disease without esophagitis; N18.9 Chronic kidney disease, unspecified; E46 Unspecified protein-calorie malnutrition; F41.9 Anxiety disorder, unspecified; F17.210 Nicotine dependence, cigarettes, uncomplicated; Z79.82 Long term (current) use of aspirin; Z79.899 Other long term (current) drug therapy
CPT/HCPCS: J0330; J0461; J2405; J2704; J3010; J7120

== ENCOUNTER 2022-01-18 14:17 | Emergency (ER) | payer MEDICARE ==
[~2022-01-18] VITALS: Ht 160 cm; Wt 38.6 kg
[2022-01-18 15:48] LABS: BASOPHILS ABSOLUTE AUTO 0.07 K/mm3 (0.00-0.23); BASOPHILS PERCENT AUTO 1 % (0-2); EOSINOPHILS ABSOLUTE AUTO 0.17 K/mm3 (0.00-0.68); EOSINOPHILS PERCENT AUTO 2 % (0-6); Hematocrit 25.2 % (33.0-51.0); Hemoglobin 7.5 g/dL (11.5-16.0); IMMATURE GRAN ABSOLUTE AUTO 0.06 K/mm3 (0.00-0.10); IMMATURE GRAN PERCENT AUTO 1 % (0-1); LYMPHOCYTES ABSOLUTE AUTO 1.48 K/mm3 (0.84-5.20); LYMPHOCYTES PERCENT AUTO 18 % (21-46); MONOCYTES ABSOLUTE AUTO 0.67 K/mm3 (0.16-1.47); MONOCYTES PERCENT AUTO 8 % (4-13); Mean Corpuscular HGB Conc 29.8 g/dL (31.5-36.5); Mean Corpuscular Volume 81 fL (80-100); Mean Platelet Volume 10.6 fL (9.1-12.4); NEUTROPHILS ABSOLUTE AUTO 5.76 K/mm3 (1.96-9.15); NEUTROPHILS PERCENT AUTO 70 % (41-73); Platelet Count 271 K/mm3 (150-400); RDW Coefficient Variation 22.2 % (11.7-14.2); RDW Standard Deviation 64.3 fL (35.1-46.3); Red Blood Cell Count 3.12 M/mm3 (3.80-5.20); White Blood Cell Count 8.21 K/mm3 (4.00-11.30)
[2022-01-18 16:06] LABS: Albumin, Blood 3.6 g/dL (3.4-5.0); Bilirubin, Total 0.3 mg/dL (0.1-1.0); Calcium, Blood 8.7 mg/dL (8.5-10.1); Creatinine, Blood 1.28 mg/dL (0.40-1.00); Globulin, Blood 3.5 g/dL (2.2-4.0); Potassium, Blood 3.6 mmol/L (3.5-5.5); Total Protein, Blood 7.1 g/dL (6.4-8.2)
[2022-01-19] MEDS ORDERED: FURO20 PO (12:16)
== END 2022-01-18 17:21 | disposition home or self-care (01) ==
LOC: ER 14:17
PROVIDERS: Physician Assistant
DX: R71.8 Other abnormality of red blood cells (principal); Z53.21 Procedure and treatment not carried out due to patient leaving prior to being seen by health care provider
CPT/HCPCS: 36415; 80053; 85025; 86850; 86870; 86900; 86901; 86902; 86905; 86922; 99281

== ENCOUNTER 2022-01-19 11:50 | Day surgery (SDC) | payer MEDICARE ==
[2022-01-19] MEDS ORDERED: FURO20 PO (12:16)
--- NOTE | 2022-01-19 18:14 | NUR ---
SUMMARY PT TO UNIT FOR BLOOD TRANSFUSION 2 UNITS PRBC. DUE TO PT HX OF "SEVERE HEART FAILURE" PER PT MD REQUEST THAT BLOOD TRANSFUSION BE INFUSED SLOWLY. PT TOLERATING INFUSION AT 125ML/HR, LUNGS COARSE AT BEGINING AND REMAIN WITH NO SOB, CRACKLES, OR CP. PT HYPERTENSIVE BUT STATES THAT SHE DID NOT TAKE BP MEDICATION TODAY. PT INDEPENDENT BUT 1 SBA TO BATHROOM FOR ASSISTANCE WITH IV LINE.
--- NOTE | 2022-01-20 00:35 | NUR ---
ADMINISTERED ONE UNIT OF PRBC'S ON MY SHIFT. VITAL SIGNS TAKEN THROUGHOUT. NO ADVERSE REACTIONS NOTED. BLOOD PRESSURE INCREASED THROUGHOUT THE EVENING, PT STATED THAT SHE HAS HTN AND THAT SHE WAS UNABLE TO TAKE HER BLOOD PRESSURE MEDICATION LIKE SHE NORMALLY DOES DUE TO BEING HERE FOR ADMINISTRATION OF PRBC'S, PT STATED SHE WOULD TAKE MEDICATION WHEN SHE GOT HOME. PT PLEASANT AND COOPERATIVE, IND IN THE ROOM. ONCE PRBC'S FINISHED, WALKED PATIENT OUT AND PT LEFT WITH HER SON IN HIS AUTOMOBILE AT APPROX 0025, BELONGINGS TAKEN WITH PT.
== END 2022-01-20 00:25 | disposition home or self-care (01) ==
LOC: TRN 11:50 → EDSTATUS 11:50 → SURS 11:50
DX: D50.8 Other iron deficiency anemias (principal)
CPT/HCPCS: 36415; 36430; 86850; 86900; 86901; 86922; J7040; P9016

== ENCOUNTER 2022-01-31 23:27 | Emergency (ER) | payer MEDICARE ==
[~2022-01-31] VITALS: Ht 160 cm; Wt 43.1 kg
[~2022-01-31 23:27] MED LIST changes: +FURO20 PO
[2022-02-01 01:07] LABS: BASOPHILS ABSOLUTE AUTO 0.07 K/mm3 (0.00-0.23); BASOPHILS PERCENT AUTO 1 % (0-2); EOSINOPHILS ABSOLUTE AUTO 0.31 K/mm3 (0.00-0.68); EOSINOPHILS PERCENT AUTO 5 % (0-6); Hematocrit 36.2 % (33.0-51.0); IMMATURE GRAN ABSOLUTE AUTO 0.01 K/mm3 (0.00-0.10); IMMATURE GRAN PERCENT AUTO 0 % (0-1); LYMPHOCYTES ABSOLUTE AUTO 1.49 K/mm3 (0.84-5.20); LYMPHOCYTES PERCENT AUTO 25 % (21-46); MONOCYTES ABSOLUTE AUTO 0.74 K/mm3 (0.16-1.47); MONOCYTES PERCENT AUTO 12 % (4-13); Mean Corpuscular HGB 26.1 pg (26.0-34.0); Mean Corpuscular HGB Conc 30.4 g/dL (31.5-36.5); Mean Corpuscular Volume 86 fL (80-100); Mean Platelet Volume 10.6 fL (9.1-12.4); NEUTROPHILS ABSOLUTE AUTO 3.34 K/mm3 (1.96-9.15); NEUTROPHILS PERCENT AUTO 56 % (41-73); Platelet Count 226 K/mm3 (150-400); RDW Coefficient Variation 22.2 % (11.7-14.2); RDW Standard Deviation 69.5 fL (35.1-46.3); Red Blood Cell Count 4.21 M/mm3 (3.80-5.20); White Blood Cell Count 5.96 K/mm3 (4.00-11.30)
[2022-02-01 01:25] LABS: Albumin, Blood 3.5 g/dL (3.4-5.0); Bilirubin, Total 0.3 mg/dL (0.1-1.0); Bun/Creatinine Ratio 29.6 (12.0-20.0); Creatinine, Blood 1.08 mg/dL (0.40-1.00); Globulin, Blood 3.4 g/dL (2.2-4.0); Total Protein, Blood 6.9 g/dL (6.4-8.2)
[2022-02-01] MEDS ORDERED: PRED20 PO (05:50)
[2022-02-01] MEDS ORDERED: AZIT250 PO (05:50)
== END 2022-02-01 06:08 | disposition home or self-care (01) ==
LOC: ER 23:27
PROVIDERS: Physician Assistant
DX: J44.1 Chronic obstructive pulmonary disease with (acute) exacerbation (principal); L30.8 Other specified dermatitis; J20.9 Acute bronchitis, unspecified; J44.0 Chronic obstructive pulmonary disease with (acute) lower respiratory infection; I25.10 Atherosclerotic heart disease of native coronary artery without angina pectoris; I10 Essential (primary) hypertension; E78.5 Hyperlipidemia, unspecified; F32.A Depression, unspecified; Z88.8 Allergy status to other drugs, medicaments and biological substances; Z79.899 Other long term (current) drug therapy
CPT/HCPCS: 36415; 71046; 80053; 84484; 85025; 94640; 94664; A9270; J7512

== ENCOUNTER 2022-02-19 05:27 | Inpatient (IN) | payer MEDICARE ==
[~2022-02-19] VITALS: Ht 167.6 cm; Wt 36.3 kg
[~2022-02-19 05:27] MED LIST changes: +AZIT250 PO; +PRED20 PO
[2022-02-19 06:13] LABS: Source, Urine Straight Cath
[2022-02-19 06:14] LABS: Bilirubin, Urine Neg (Neg); Blood, Urine Neg (Neg); Glucose Qualitative, Urine Neg (Neg); Ketones, Urine Neg (Neg); Leukocyte Esterase, Urine Neg (Neg); Nitrite, Urine Neg (Neg); Protein, Urine 3+ (Neg); Urobilinogen, Urine NORM (Normal)
[2022-02-19 06:16] LABS: Appearance, Urine Clear (Clear); Color, Urine Yellow (P-Yellow)
[2022-02-19 06:25] LABS: BASOPHILS ABSOLUTE AUTO 0.05 K/mm3 (0.00-0.23); BASOPHILS PERCENT AUTO 1 % (0-2); EOSINOPHILS ABSOLUTE AUTO 0.09 K/mm3 (0.00-0.68); EOSINOPHILS PERCENT AUTO 1 % (0-6); Hematocrit 42.1 % (33.0-51.0); Hemoglobin 13.3 g/dL (11.5-16.0); IMMATURE GRAN ABSOLUTE AUTO 0.01 K/mm3 (0.00-0.10); IMMATURE GRAN PERCENT AUTO 0 % (0-1); LYMPHOCYTES ABSOLUTE AUTO 0.82 K/mm3 (0.84-5.20); LYMPHOCYTES PERCENT AUTO 11 % (21-46); MONOCYTES ABSOLUTE AUTO 0.65 K/mm3 (0.16-1.47); MONOCYTES PERCENT AUTO 9 % (4-13); Mean Corpuscular HGB 26.4 pg (26.0-34.0); Mean Corpuscular HGB Conc 31.6 g/dL (31.5-36.5); Mean Corpuscular Volume 84 fL (80-100); Mean Platelet Volume 9.5 fL (9.1-12.4); NEUTROPHILS ABSOLUTE AUTO 5.68 K/mm3 (1.96-9.15); NEUTROPHILS PERCENT AUTO 78 % (41-73); Platelet Count 221 K/mm3 (150-400); RDW Coefficient Variation 21.7 % (11.7-14.2); RDW Standard Deviation 66.1 fL (35.1-46.3); Red Blood Cell Count 5.04 M/mm3 (3.80-5.20)
[2022-02-19 06:34] LABS: Bacteria Not Seen /hpf; Red Blood Cells, Urine 0-2 /hpf (0-2); Squamous Epithelial Cells Not Seen /hpf (Few); White Blood Cells, Urine 0-2 /hpf (0-5)
[2022-02-19 06:39] LABS: Albumin/Globulin Ratio 0.9 (0.8-1.8); Bilirubin, Total 0.4 mg/dL (0.1-1.0); Calcium, Blood 8.9 mg/dL (8.5-10.1); Creatinine, Blood 1.11 mg/dL (0.40-1.00); Globulin, Blood 3.5 g/dL (2.2-4.0); Potassium, Blood 3.4 mmol/L (3.5-5.5); Total Protein, Blood 6.5 g/dL (6.4-8.2)
--- NOTE | 2022-02-19 10:15 | NUR ---
REPORT RECIEVED FROM ER NURSE, AWAITING ARRIVAL AT THIS TIME.
[2022-02-19 11:10] LABS: Source, Urine Clean Catch
[2022-02-19 11:28] LABS: Appearance, Urine Clear (Clear); Bilirubin, Urine Neg (Neg); Blood, Urine 1+ (Neg); Color, Urine Yellow (P-Yellow); Glucose Qualitative, Urine Neg (Neg); Ketones, Urine Neg (Neg); Leukocyte Esterase, Urine Neg (Neg); Nitrite, Urine Neg (Neg); Protein, Urine 2+ (Neg); Urobilinogen, Urine NORM (Normal)
[2022-02-19 11:40] LABS: Bacteria Rare /hpf; Red Blood Cells, Urine 0-2 /hpf (0-2); Squamous Epithelial Cells Few /hpf (Few); White Blood Cells, Urine 0-2 /hpf (0-5)
[2022-02-19] MEDS ORDERED: LATA.005SO BOTHEYES (12:26)
[2022-02-19] MEDS ORDERED: PROM25 PO (12:27)
--- NOTE | 2022-02-19 17:49 | NUR ---
SHIFT SUMMARY PT AXO X1-4, MENTATION WAXES AND WANES THROUGHOUT THE SHIFT. PLEASANT AND COOPERATIVE WITH CARE. BED ALARM ON PATIENT DOES NOT USE CALL LIGHT. UP TO VOID FREQUENTLY POST LASIX PER EMAR. UP TO BSC WITH SBA. DURING ADMISSION ASSESSMENT, PT'S SON WAS IN THE ROOM. PT'S SON ASKED THE PATIENT TO "TELL THE NURSE" SOMETHING. PT STATED THAT SHE HAS BEEN "STEALING 'S NARCOTICS." PT'S SON STATED THAT HE WILL CALL NURSE AFTER HE GETS HOME WITH THE EXACT MEDICATION AND DOSAGE THAT THE PATIENT HAS BEEN TAKING. PATIENT IS A POOR HISTORIAN AND CANNOT RELIABLY STATE DOSAGE AND FREQUENCY THAT SHE TAKES THIS MEDICATION. SCD'S TO BLE. IV PATENT AND SALINE LOCKED. ON TELE, SINUS IN THE 90'S. LABETALOL PER EMAR AT 1540 FOR BP OF 172/100 WHICH THEN CAME DOWN TO 166/86. BED IN LOW POSITION, CALL LIGHT WITHIN REACH, BED ALARM ON.
[2022-02-19 17:59] LABS: Hematocrit 40.2 % (33.0-51.0); Hemoglobin 12.6 g/dL (11.5-16.0)
--- NOTE | 2022-02-19 19:00 | NUR ---
PT'S SON BROUGHT IN PICTURES OF THE PILL BOTTLES OF THE MEDICATIONS THAT THEY STATE SHE HAS BEEN STEALING FROM HER AND TAKING: LYRICA 75MG, UNKNOWN HOW MANY AND HOW FREQUENTLY MORPHINE SULFATE 30 MG, UNKNOWN HOW MANY AND HOW FREQUENTLY OXYCODONE 5 MG, UNKNOWN HOW MANY PILLS AND HOW FREQUENTLY
--- NOTE | 2022-02-20 05:22 | NUR ---
SUMMARY: PT A/OX2 AND IS MILDLY CONFUSED TO SURROUNDINGS/SITUATION W/REMINDERS PROVIDED PRN. SHE'S SBA OOB FOR WEAKNESS W/BED ALARM ON FOR IMPULSIVITY. SHE REMAINS HYPERTENSIVE W/SBP 170'S-180'S AND PRN LABETOLOL RECIEVED X2 DOSES FOR MILD EFFECT. SCHEDULED NTG PASTE APPLIED PER EMAR AND PT HAS DENIED CP AND ALL OTHER S/S CARDIAC DISTRESS. SHE IS NSR AT 80'S BPM ON TELEMETRY. TYLENOL RECIEVED PRN FOR RELIEF OF MELO AND PT DENIED ALL OTHER COMPLAINTS/CONCERNS. NO ACUTE CHANGES, VSS/AFEBRILE. WCTM AND REPORT TO DAY RN.
--- NOTE | 2022-02-20 09:44 | NUR ---
gave labatolol for bp 187/95. called [facility] prior to administration
--- NOTE | 2022-02-20 12:11 | NUR ---
Spiritual care visit conducted. Pt immediately tells me about her current medical problems and explains that she is waiting to hear what the plan of care will be. She talks about her and son and the support that they are to her. She shares about her beliefs in the Metaphysical and that this is her source of strength and inspiration. She does admit to having some fear and anxiety. I normalize her experience and provide therapeutic listening, spiritual guidance and prayer. Patient responds well and shows signs of reduced fear and increased peace. I will continue to remain available to patient and family.
--- NOTE | 2022-02-20 14:30 | NUR ---
PT TAKEN TO THE CLINICAL LABORATORY AIDES TEACHER FOR ANGIOGRAM AROUND 1430, PT WAS A/OX3 APPEARED TO BE BREATHING EASILY ON RA. BELONGINGS TAKEN TO ROOM PCU 5
--- NOTE | 2022-02-20 16:34 | NUR ---
AM ASSESSMENT I AGREE WITH AND WAS PRESENT DURING THE STUDENT NURSE SAMI'S AM ASSESSMENT, AND HAVE REVIEWED HER DOCUMENTATION OF THIS PATIENT
--- NOTE | 2022-02-20 17:05 | NUR ---
ASSUMUMED CARE WITH MEERA ROLON. PT. ARRIVED TO PCU FROM QUILT STUFFER WITH RIGHT GROIN ACCESS.
--- NOTE | 2022-02-20 18:07 | NUR ---
PT HAD SOME BLEEDING AT ANGIO PUNCTURE SITE AND BP INCREASED INTO SYSTOLIC 190'S. MANUAL PRESSURE HELD WHILE ONLINE TRADER CALLED MD. ORDERS RECEIVED FOR IV HYDRALAZINE, EARLY DOSE OF LISINOPRIL AND TO APPLY PRESSURE DRESSING. AFTER MANUAL PRESSURE. PRESSURE DRESSING APPLIED WITH SAND BAG. WILL CONTINUE TO MONITOR SITE. PT HAS GOOD PULSES TO RIGHT LOWER EXTREMITY. NO FORMULATION OF HEMATOMA NOTED.
--- NOTE | 2022-02-20 18:38 | NUR ---
SHIFT SUMMARY: PT. CAME TO PCU 05 LATER IN THE SHIFT AFTER GOING TO THE CATH. LAB AND HAVING A STENT PLACED. THEY TRIED TO ACCESS HER RIGHT RADIAL ART. BUT WERE UNSUCCESSFUL. SITE OF ACCESS WAS THE RIGHT GROIN. AFTER 45 MINUTES OF MONITORING THE PATIENT STARTED TO HAVE AN INCREASE IN BLEEDING. WE CALLED THE DRKavon AND GOT ORDERS OF A PRESSURE DRESSING W/ SAND BAGS FOR WEIGHT, AND A FEM STOP @ 20 MM HG IF NEEDED. FEM STOP APPLIED AT 1840 AND WAS INITALLY 20 MM HG. IT CONTINUED TO BLEED, SO IT WAS INCREASED TO 60 MM HG. PT. HAS BEEN HYPERTENSIVE AND ORDERED 10 MG OF HYRDRALAZINE IV, AND 20 MG LISINOPRIL EARLY TO HELP MANAGE BP AND HELP STOP BLEEDING. PT.'S BP IS IMPROVING AND TRENDING DOWNWARD. PRIMARY RN MANAGING FEM STOP. CURRENTLY BEING CAREFULLY MONITORED FOR BLEEDING
--- NOTE | 2022-02-20 19:24 | NUR ---
FEM STOP APPLIED AT 1840 AT 6OmmHG TO STOP BLEEDING AT SITE. RN REMAINED AT BEDSIDE AND BEGAN TO TITRATE DOWN FEMSTOP MONITORING FOR NEW BLEEDING. AT SHIFT CHANGE WITH NOC RN AT BEDSIDE 25mmHG IN PLACE OF FEMSTOP. BRUISING AROUND ACCESS SITE WAS NOTED, NO SWELLING AROUND FEMSTOP, ABD, OR THIGH NOTED. PULSES TO RIGHT FOOT WERE STRONG DURING ENTIRE APPLICATION. BP HAD TRENDED DOWN AFTER MEDICATION ADMINISTRATION.
--- NOTE | 2022-02-20 20:32 | NUR ---
ASSUMPTION OF CARE/UPDATE PATIENT RESTING FLAT IN BED, FEM STOP IN PLACE, REVIEWED WITH DAY SHIFT RN. MINIMAL BRUSING UNDER FEM TOP, NO HEMATOMA NOTED. TISSUE IN GROIN, PELVIC, UPPER THIGH SOFT. PEDAL PULSE PALPABLE. PT HAVING PERIODS OF HTN. DAY SHIFT RN ADMINISTERED PRN FOR HTN, SEE EMAR. PATIENT COMPLAINING OF PAIN, MEDICATED WITH PRN TYLENOL. CALL PLACED TO HOSPITALIST, ORDER RECIEVED FOR PRN IV FENTYNAL.
--- NOTE | 2022-02-21 00:29 | NUR ---
0000 UPDATE UPON ENTERING PATIENT'S ROOM FOR 0000 VITALS, PATIENT WAS FOUND TO BE AMBULATING INTO BATHROOM. PATIENT STATED "I TOOK THAT PLASTIC THING OFF TO SNEAK TO GO TO THE BATHROOM, I HAD TO PEE". FEM STOP FOUND IN PATIENT'S BED. RIGHT GROIN SITE INCISION CLOSED WITH NO SIGNS OF DRAINAGE. TISSUE AROUND SITE REMAINS SOFT AND NO SIGN OF HEMATOMA. SOME BRUISING FROM PROCEDURE. PATIENT EDUCATED ON IMPORTANCE OF USING CALL LIGHT WHEN SHE NEEDS ASSISTANCE. PATIENT BACK IN BED UTILIZING BEDPAN. FULL SET OF VITALS OBTAINED. BED ALARM ON FOR IMPULSIVITY AND SAFETY.
--- NOTE | 2022-02-21 07:17 | NUR ---
SHIFT SUMMARY PATIENT ALERT AND ORIENTED x3-4. VSS. PERIODS OF HTN, MEDICATED PER EMAR. REMAINS ON RA WITH O2 SAT >90%. PATIENT DENIES CHEST PAIN/PRESSURE DURING THE NIGHT. FEM STOP OFF SINCE 0000. SEE PREVIOUS NOTE. RIGHT RADIAL SITE COVERED WITH TRANSPARENT DRESSING, SMALL BRUISE, STRONG PULSE. RIGHT GROIN SITE COVERED WITH TRANSPARENT DRESSING SINCE 0000. NO SIGNS OF BLEEDING SINCE FEM STOP REMOVED, SURROUNDING TISSUE REMAINS SOFT, STRONG PEDAL PULSE. PATIENT IMPULSIVE AT TIMES, BED ALARM ON FOR SAFETY. PATIENT EDUCATED ABOUT SAFETY AND IMPORTANCE OF USING CALL LIGHT. NO OTHER ACUTE CHANGES, REPORT GIVEN TO DAY SHIFT RN, SEE PAPER CHARTING.
[2022-02-21 07:43] LABS: Hematocrit 40.7 % (33.0-51.0); Hemoglobin 12.8 g/dL (11.5-16.0); Mean Corpuscular HGB 26.1 pg (26.0-34.0); Mean Corpuscular HGB Conc 31.4 g/dL (31.5-36.5); Mean Corpuscular Volume 83 fL (80-100); Mean Platelet Volume 9.4 fL (9.1-12.4); Platelet Count 240 K/mm3 (150-400); RDW Coefficient Variation 22.2 % (11.7-14.2); RDW Standard Deviation 67.6 fL (35.1-46.3); White Blood Cell Count 11.51 K/mm3 (4.00-11.30)
[2022-02-21 07:53] LABS: Anion Gap 8 mmol/L (6-16); Blood Urea Nitrogen 17 mg/dL (8-24); Bun/Creatinine Ratio 15.5 (12.0-20.0); CHOL/HDL RATIO 4.9; CO2, Blood 25 mmol/L (21-32); Calcium, Blood 9.1 mg/dL (8.5-10.1); Chloride, Blood 107 mmol/L (98-108); Cholesterol 210 mg/dL (50-200); Glomerular Filtration Rate 55 (60-); Glucose, Blood 111 mg/dL (70-99); HDL Cholesterol 43 mg/dL (>39); LDL/HDL RATIO 3.1; Low Density Lipoprotein Chol 135 mg/dL (0-110); Potassium, Blood 3.5 mmol/L (3.5-5.5); Sodium, Blood 140 mmol/L (136-145); Triglycerides 159 mg/dL (30-160); Very Low Density Lipoprot Chol 32 mg/dL (6-32)
--- NOTE | 2022-02-21 11:05 | NUR ---
RADIAL AND FEMORAL SITE DRESSING IN TEGADERM DRESSINGS. SMALL HEMATOMA NOTED TO RT RADIAL SITE, FEMORAL SITE WITH SLIGHT BRUISING. NO ACTIVE BLEEDING NOTED FROM EITHER SITE. FEMORAL SITE SOFT. GOOD RADIAL PULSE NOTED
--- NOTE | 2022-02-21 17:34 | NUR ---
SHIFT SUMMARY PT IS A/O X4 AND IS COOPERATIVE WITH STAFF. PT WENT FOR ANGIO ON 02/20/22 W/PLACEMENT OF NEW STENT. RT RADIAL AND RT GROIN ACCESS SITES SHOW NO SIGNS OF BLEEDING/TENDERNESS, BUT RT RADIAL SITE HAS A SMALL HEMOTOMA NOTED AT THE START OF THIS SHIFT. NO FURTHER PROGRESSION OF HEMATOMA NOTED. PT IS ON RA AND IS NOW STEADY ENOUGH TO AMBULATE TO THE BATHROOM TO VOID. PT'S SBP HAS BEEN RANGING 150's-160's, BUT HAS BEEN CONTROLLED VIA PRN HYDRALAZINE. DR HEADLEY SPOKE WITH THE PATIENT ABOUT POSSIBLE D/C 02/22/22. VSS, NADN, NO REPORTS OF CP OR SOB PT CALLs APPROPRIATELY
--- NOTE | 2022-02-21 20:00 | NUR ---
ASSUMPTION OF CARE Assumed care of pt at 1900. A/Ox4. Sitting in bed watching television, on RA. No c/o CP/Pressure/dyspnea. Mild bruising noted at R radial site with scant sanguinous drainage. R femoral site C/D/I. SBP 160's, however PM meds not given yet.
[2022-02-22 04:11] LABS: Creatinine, Blood 1.19 mg/dL (0.40-1.00); Potassium, Blood 2.9 mmol/L (3.5-5.5)
--- NOTE | 2022-02-22 05:51 | NUR ---
SHIFT SUMMARY Patient remained A/Ox4 with no c/o CP/pressure. Independent in room. Reports she felt like "I was going to " evening of 02/20, but now reports to feel "so much better". Maintains above 95% on RA, clear upper lobes and dim at bases. No report of cough. SR on tele in 80's. Pulses strong t/o, no edema noted. R radial site with light old sanguinous drainage and minimal bruising noted. R fem site c/d/i with scant bruising. SR on tele 70's, murmur auscultated. Faint +1 pulses t/o. 1+ pitting edema to BLE, generalized trace edema. SR on tele 70's with murmur auscultated. Faint +1 pulses t/o. 1+ pitting edema BLE, generalized trace edema. Continues to have high BP despite extra dose of norvasc with SBP in 150's. Will report to alissa ROLON.
[2022-02-22] MEDS ORDERED: AMLO10 PO (13:31)
[2022-02-22] MEDS ORDERED: CLOP75 PO (13:32)
[2022-02-22] MEDS ORDERED: ASPI81CH PO (13:32)
[2022-02-22] MEDS ORDERED: ATOR80 PO (13:32)
[2022-02-22] MEDS ORDERED: POTCHL20ER PO (13:33)
[2022-02-22] MEDS ORDERED: METO50ER PO (13:33)
[2022-02-22] MEDS ORDERED: LISI20 PO (13:33)
[2022-02-22] MEDS ORDERED: SPIR50 PO (13:34)
--- NOTE | 2022-02-22 14:19 | NUR ---
DISCHARGE SUMMARY PT IS A/O x4 AND IS COOPERATIVE WITH STAFF. PT AND FAMILY THOROUGHLY EDUCATED ABOUT NEW MEDICATIONS [facility]LL [facility] OF RADIAL/FEMORAL ANGIO INSERTION SITES. PT ALSO EDUCATED ABOUT HER THE CURRENT CONDITION OF HER HEART VIA NOTES FROM INVESTIGATIVE RESEARCH SPECIALIST. PT ADVISED TO KEEP B/P LOG FOR SEVERAL WEEKS AND TO FOLLOW UP WITH PCP [facility] IN 2-3 WEEKS. PT AND FAMILY CONFIRMED UNDERSTANDING OF THE TEACHING PROVIDED AND HAD NO FURTHER QUESTIONS. PT STATED NO CP/PRESSURE, SOB, OR DIZZNESS UPON DISCHARGE. VSS AND NADN UPON DISHCARGE
== END 2022-02-22 14:10 | disposition home or self-care (01) | DRG 246 ==
LOC: ER 05:27 → PCU 05:28 → MEDS 05:28 → PCU 02-20 14:45
PROVIDERS: Emergency Medicine; Internal Medicine Cardiovascular Disease; Nurse Practitioner Acute Care; ADMIT Hospitalist
PROC: 027034Z Dilation of Coronary Artery, One Artery with Drug-eluting Intraluminal Device, Percutaneous Approach (ICD-10-PCS; principal; 2022-02-20)
PROC: B2111ZZ Fluoroscopy of Multiple Coronary Arteries using Low Osmolar Contrast (ICD-10-PCS; 2022-02-20)
PROC: 4A033BC Measurement of Arterial Pressure, Coronary, Percutaneous Approach (ICD-10-PCS; 2022-02-20)
DX: T82.855A Stenosis of coronary artery stent, initial encounter (principal); I21.A1 Myocardial infarction type 2; G92.8 Other toxic encephalopathy; I50.23 Acute on chronic systolic (congestive) heart failure; I21.A9 Other myocardial infarction type; I13.0 Hypertensive heart and chronic kidney disease with heart failure and stage 1 through stage 4 chronic kidney disease, or unspecified chronic kidney disease; E44.0 Moderate protein-calorie malnutrition; K92.2 Gastrointestinal hemorrhage, unspecified; Z68.1 Body mass index [BMI] 19.9 or less, adult; I25.5 Ischemic cardiomyopathy; D50.0 Iron deficiency anemia secondary to blood loss (chronic); J44.9 Chronic obstructive pulmonary disease, unspecified; G89.4 Chronic pain syndrome; I25.10 Atherosclerotic heart disease of native coronary artery without angina pectoris; H40.9 Unspecified glaucoma; K31.84 Gastroparesis; E78.5 Hyperlipidemia, unspecified; F32.A Depression, unspecified; M81.0 Age-related osteoporosis without current pathological fracture; N18.30 Chronic kidney disease, stage 3 unspecified; F12.90 Cannabis use, unspecified, uncomplicated; F17.210 Nicotine dependence, cigarettes, uncomplicated; R77.8 Other specified abnormalities of plasma proteins; Z95.5 Presence of coronary angioplasty implant and graft; Z90.49 Acquired absence of other specified parts of digestive tract; Z88.8 Allergy status to other drugs, medicaments and biological substances; Z79.2 Long term (current) use of antibiotics; Z79.01 Long term (current) use of anticoagulants; Z79.899 Other long term (current) drug therapy; Z79.52 Long term (current) use of systemic steroids; E78.00 Pure hypercholesterolemia, unspecified
CPT/HCPCS: 36415; 70450; 71045; 80048; 80053; 80061; 81001; 83735; 83880; 84443; 84484; 85014; 85018; 85025; 85027; 85347; 92920; 93005; 93010; 93308; 93321; 93454; 93571; 96375; 96376; 97116; 97161; 99152; 99153; 99285-25; A9270; C1725; C1760; C1769; C1874; C1887; C1894; C9113; C9600; G0378; J0360; J1644; J1940; J2250; J2405; J3010; J7030; J7040; P9612; Q9967

== ENCOUNTER 2022-05-09 13:03 | Inpatient (IN) | payer MEDICARE ==
[~2022-05-09] VITALS: Ht 162.6 cm; Wt 35.9 kg
[~2022-05-09 13:03] MED LIST changes: +AMLO10 PO; +ASPI81CH PO; +ATOR80 PO; +LATA.005SO BOTHEYES; +METO50ER PO; +POTCHL20ER PO; +SPIR50 PO
[2022-05-09 14:10] LABS: BASOPHILS ABSOLUTE AUTO 0.04 K/mm3 (0.00-0.23); BASOPHILS PERCENT AUTO 1 % (0-2); EOSINOPHILS ABSOLUTE AUTO 0.12 K/mm3 (0.00-0.68); EOSINOPHILS PERCENT AUTO 2 % (0-6); Hemoglobin 9.3 g/dL (11.5-16.0); IMMATURE GRAN ABSOLUTE AUTO 0.05 K/mm3 (0.00-0.10); IMMATURE GRAN PERCENT AUTO 1 % (0-1); LYMPHOCYTES ABSOLUTE AUTO 1.19 K/mm3 (0.84-5.20); LYMPHOCYTES PERCENT AUTO 15 % (21-46); MONOCYTES ABSOLUTE AUTO 0.66 K/mm3 (0.16-1.47); MONOCYTES PERCENT AUTO 8 % (4-13); Mean Corpuscular HGB Conc 32.1 g/dL (31.5-36.5); Mean Corpuscular Volume 97 fL (80-100); Mean Platelet Volume 8.3 fL (9.1-12.4); NEUTROPHILS ABSOLUTE AUTO 6.13 K/mm3 (1.96-9.15); NEUTROPHILS PERCENT AUTO 75 % (41-73); Platelet Count 307 K/mm3 (150-400); RDW Coefficient Variation 17.4 % (11.7-14.2); RDW Standard Deviation 62.2 fL (35.1-46.3); White Blood Cell Count 8.19 K/mm3 (4.00-11.30)
[2022-05-09 14:37] LABS: Albumin, Blood 3.6 g/dL (3.4-5.0); Albumin/Globulin Ratio 1.2 (0.8-1.8); Bilirubin, Total 0.2 mg/dL (0.1-1.0); Calcium, Blood 8.9 mg/dL (8.5-10.1); Creatinine, Blood 2.33 mg/dL (0.40-1.00); Potassium, Blood 4.4 mmol/L (3.5-5.5); Total Protein, Blood 6.6 g/dL (6.4-8.2)
[2022-05-09 17:38] LABS: Percent Saturation 5.8 % (15.0-50.0)
--- NOTE | 2022-05-09 18:38 | NUR ---
ADMIT/SHIFT SUMMARY PATIENT ADMITTED FROM ER AT 1810. PATIENT SETTLED INTO ROOM. PATIENT ORIENTED TO CALL LIGHT. PATIENT CALLED FAMILY TO NOTIFY THEM OF ADMISSION AND ROOM NUMBER. PATIENT MEDICATED X1 FOR PAIN. PATIENT DENIES NAUSEA AND SHORTNESS OF BREATH. CONSULT CALLED TO DR. HOLT FOR RIGHT FOOT FX. PER DR. HOLT, NON-WEIGHT BEARING TO RIGHT FOOT. TELE ORDERED, AWAITING ARRIVAL. PATIENT IS EATING AND DRINKING WELL. PATIENT IS VERY PLEASANT AND COOPERATIVE WITH CARE.
--- NOTE | 2022-05-09 21:36 | NUR ---
UNIVERSITY LECTURER STS PT HAS SMALL ST CHANGES. CALLED DR BERNABE, NO CHANGES TO PT ORDERS, PT IS ASYMPTOMATIC.
--- NOTE | 2022-05-10 04:02 | NUR ---
SHIFT SUMMARY PT HAS HAD NO COMPLAINTS THROUGHOUT THIS SHIFT. PT DID HAVE A SMALL ST CHANGES IN HER EKG PER LASTING MACHINE OPERATOR HAND METHOD MARIA GUADALUPE. CALLED AND SPOKE TO DR. BERNABE WHO SAID THAT SINCE SHE IS ASYMPTOMATIC, THERE IS NOTHING ELSE WE SHOULD BE DOING AT THIS TIME. I DID WAKE THIS PT FROM SLEEP TO MAKE SURE THAT SHE WAS NOT HAVING ANY PAIN OR SOB AT THE TIME OF THE CALL. PT HAS NS RUNNING AT 50/HR. PT HAS CALL LIGHT WITHIN HER REACH. PT ASLEEP MOST OF THE NIGHT.
[2022-05-10 05:57] LABS: BASOPHILS ABSOLUTE AUTO 0.05 K/mm3 (0.00-0.23); BASOPHILS PERCENT AUTO 1 % (0-2); EOSINOPHILS ABSOLUTE AUTO 0.26 K/mm3 (0.00-0.68); EOSINOPHILS PERCENT AUTO 3 % (0-6); Hematocrit 27.1 % (33.0-51.0); Hemoglobin 8.7 g/dL (11.5-16.0); IMMATURE GRAN ABSOLUTE AUTO 0.03 K/mm3 (0.00-0.10); IMMATURE GRAN PERCENT AUTO 0 % (0-1); LYMPHOCYTES ABSOLUTE AUTO 2.19 K/mm3 (0.84-5.20); LYMPHOCYTES PERCENT AUTO 24 % (21-46); MONOCYTES ABSOLUTE AUTO 0.89 K/mm3 (0.16-1.47); MONOCYTES PERCENT AUTO 10 % (4-13); Mean Corpuscular HGB Conc 32.1 g/dL (31.5-36.5); Mean Corpuscular Volume 96 fL (80-100); Mean Platelet Volume 8.8 fL (9.1-12.4); NEUTROPHILS ABSOLUTE AUTO 5.66 K/mm3 (1.96-9.15); NEUTROPHILS PERCENT AUTO 62 % (41-73); Platelet Count 299 K/mm3 (150-400); RDW Coefficient Variation 17.2 % (11.7-14.2); RDW Standard Deviation 60.7 fL (35.1-46.3); Red Blood Cell Count 2.81 M/mm3 (3.80-5.20); White Blood Cell Count 9.08 K/mm3 (4.00-11.30)
[2022-05-10 06:13] LABS: Bun/Creatinine Ratio 18.9 (12.0-20.0); Calcium, Blood 8.6 mg/dL (8.5-10.1); Creatinine, Blood 1.96 mg/dL (0.40-1.00); Magnesium, Blood 2.1 mg/dL (1.6-2.4); Potassium, Blood 4.4 mmol/L (3.5-5.5)
[2022-05-10 09:30] LABS: Source, Urine Clean Catch
[2022-05-10 09:41] LABS: Appearance, Urine Clear (Clear); Bilirubin, Urine Neg (Neg); Blood, Urine Neg (Neg); Color, Urine Yellow (P-Yellow); Glucose Qualitative, Urine Neg (Neg); Ketones, Urine Neg (Neg); Leukocyte Esterase, Urine Neg (Neg); Nitrite, Urine Neg (Neg); Protein, Urine 1+ (Neg); Specific Gravity, Urine 1.015 (1.003-1.022); Urobilinogen, Urine NORM (Normal); pH, Urine 6.5 (5.0-8.0)
[2022-05-10 10:14] LABS: Creatinine, Urine Random 85.8 mg/dL (27.00-270.00)
[2022-05-10 11:16] LABS: Eosinophils-Raw #,Urine 0
[2022-05-10 11:21] LABS: White Blood Cells Urine 0-2 /hpf (0-5)
--- NOTE | 2022-05-10 12:32 | NUR ---
Echocardiogram completed.
--- NOTE | 2022-05-10 18:15 | NUR ---
SHIFT SUMMARY PATIENT MEDICATED X2 FOR PAIN. PATIENT DENIES NAUSEA AND SHORTNESS OF BREATH. PATIENT NWB TO R FOOT. FOOT XRAY COMPLETE. ECHO COMPLETE. PATIENT IS A SBA WITH A FWW. PT EVAL COMPLETE, SEE NOTE. DR. HOLT CONSULTED, SPLINT PLACED WITH HELP OF ER NURSE, APPRECIATE HER TIME. NEW IV PLACED IN TRIPP. NS RUNNING AT 75MLS. PATIENT IS EATING AND DRINKING WELL. PATIENT HAD VISITOR THIS AFTERNOON. PATIENT IS PLEASANT AND COOPERATIVE WITH CARE.
--- NOTE | 2022-05-11 04:09 | NUR ---
SHIFT SUMMARY PT IS PLEASANT AND COOPERATIVE. PT COMPLAINED EARLIER OF FOOT PAIN AND WAS MEDICATED PER EMAR. PT HAS HAD NO FURTHER COMPLAINTS AND HAS SPENT MUCH OF THE SHIFT SLEEPING. PT CONTINUES TO BE ON TELEMETRY. SINUS IN THE 60'S-70'S PER MONITOR. PT HAS CALL LIGHT WITHIN HER REACH.
[2022-05-11 05:22] LABS: Albumin, Blood 2.9 g/dL (3.4-5.0); Anion Gap 2 mmol/L (6-16); Blood Urea Nitrogen 26 mg/dL (8-24); Bun/Creatinine Ratio 19.7 (12.0-20.0); CO2, Blood 28 mmol/L (21-32); Calcium, Blood 8.2 mg/dL (8.5-10.1); Chloride, Blood 106 mmol/L (98-108); Creatinine, Blood 1.32 mg/dL (0.40-1.00); Glomerular Filtration Rate 44 (60-); Glucose, Blood 86 mg/dL (70-99); Phosphorus, Blood 2.9 mg/dL (2.5-4.9); Potassium, Blood 5.1 mmol/L (3.5-5.5); Sodium, Blood 136 mmol/L (136-145)
[2022-05-11] MEDS ORDERED: Lopressor 25 mg25 MG PO (13:31)
[2022-05-11] MEDS ORDERED: DULCOLAX400 MG/5 M PO (13:32)
[2022-05-11] MEDS ORDERED: Acetaminophen650 M1 PO (13:32)
--- NOTE | 2022-05-11 14:21 | NUR ---
DISCHARGE PATIENT TRANSPORTED VIA WHEELCHAIR TO [facility]. DISCHARGE INSTRUCTIONS EXPLAINED TO PATIENT. PATIENT STATED UNDERSTANDING. PACKET SENT WITH PATIENT. BELONGINGS SENT WITH PATIENT. IV REMOVED WITHOUT DIFFICULTY. TELE REMOVED WITHOUT DIFFICULTY. SPLINT INTACT AT TIME OF DISCHARGE. WALKER DELIVERED BY FELICIANO BAIRD SENT WITH PATIENT. MEDICATIONS FAXED TO PREFERRED PHARMACY. PATIENT TO SCHEDULE FOLLOW UP APPOINTMENTS.
== END 2022-05-11 14:21 | disposition home or self-care (01) | DRG 683 ==
LOC: ER 13:03 → MEDS 16:35
PROVIDERS: Emergency Medicine; ADMIT Internal Medicine
DX: N17.9 Acute kidney failure, unspecified (principal); I50.32 Chronic diastolic (congestive) heart failure; I95.1 Orthostatic hypotension; S92.321A Displaced fracture of second metatarsal bone, right foot, initial encounter for closed fracture; S92.331A Displaced fracture of third metatarsal bone, right foot, initial encounter for closed fracture; S92.341A Displaced fracture of fourth metatarsal bone, right foot, initial encounter for closed fracture; E78.00 Pure hypercholesterolemia, unspecified; I25.5 Ischemic cardiomyopathy; F17.210 Nicotine dependence, cigarettes, uncomplicated; I25.10 Atherosclerotic heart disease of native coronary artery without angina pectoris; J44.9 Chronic obstructive pulmonary disease, unspecified; K31.84 Gastroparesis; M54.9 Dorsalgia, unspecified; G89.29 Other chronic pain; I11.0 Hypertensive heart disease with heart failure; F32.A Depression, unspecified; D50.9 Iron deficiency anemia, unspecified; K21.9 Gastro-esophageal reflux disease without esophagitis; M81.0 Age-related osteoporosis without current pathological fracture; F12.90 Cannabis use, unspecified, uncomplicated; Z88.8 Allergy status to other drugs, medicaments and biological substances; Z79.01 Long term (current) use of anticoagulants; Z95.5 Presence of coronary angioplasty implant and graft; Z87.19 Personal history of other diseases of the digestive system; Z79.82 Long term (current) use of aspirin; Z79.02 Long term (current) use of antithrombotics/antiplatelets; Z79.899 Other long term (current) drug therapy; Z79.811 Long term (current) use of aromatase inhibitors; I25.2 Old myocardial infarction; Z90.49 Acquired absence of other specified parts of digestive tract; W19.XXXA Unspecified fall, initial encounter
CPT/HCPCS: 36415; 71045; 73620; 73630; 76770; 80048; 80053; 80069; 82570; 82607; 82728; 82746; 83540; 83550; 83735; 83880; 84300; 84484; 84540; 85025; 87205; 93005; 93010; 93308; 93321; 94760; 97116; 97162; 97530; 99285-25; A9270; J1650; J7030

== ENCOUNTER 2022-06-13 05:22 | Inpatient (IN) | payer MEDICARE ==
[~2022-06-13] VITALS: Ht 160 cm; Wt 46.4 kg
[~2022-06-13 05:22] MED LIST changes: +Acetaminophen650 M1 PO; +DULCOLAX400 MG/5 M PO; +Lopressor 25 mg25 MG PO
[2022-06-13 07:05] LABS: SARS-Cov-2 (COVID-19) PCR, MMC Negative (NEGATIVE)
[2022-06-13 07:29] LABS: Albumin, Blood 3.1 g/dL (3.4-5.0); Albumin/Globulin Ratio 1.1 (0.8-1.8); Bilirubin, Total 0.2 mg/dL (0.1-1.0); Bun/Creatinine Ratio 21.6 (12.0-20.0); Calcium, Blood 8.4 mg/dL (8.5-10.1); Creatinine, Blood 0.97 mg/dL (0.40-1.00); Globulin, Blood 2.9 g/dL (2.2-4.0); Potassium, Blood 3.6 mmol/L (3.5-5.5)
[2022-06-13 07:59] LABS: BASOPHILS ABSOLUTE AUTO 0.03 K/mm3 (0.00-0.23); BASOPHILS PERCENT AUTO 1 % (0-2); EOSINOPHILS ABSOLUTE AUTO 0.03 K/mm3 (0.00-0.68); EOSINOPHILS PERCENT AUTO 1 % (0-6); Hematocrit 19.9 % (33.0-51.0); IMMATURE GRAN ABSOLUTE AUTO 0.02 K/mm3 (0.00-0.10); IMMATURE GRAN PERCENT AUTO 0 % (0-1); LYMPHOCYTES ABSOLUTE AUTO 0.63 K/mm3 (0.84-5.20); LYMPHOCYTES PERCENT AUTO 10 % (21-46); MONOCYTES ABSOLUTE AUTO 0.45 K/mm3 (0.16-1.47); MONOCYTES PERCENT AUTO 7 % (4-13); Mean Corpuscular HGB 26.8 pg (26.0-34.0); Mean Corpuscular HGB Conc 29.6 g/dL (31.5-36.5); Mean Corpuscular Volume 91 fL (80-100); Mean Platelet Volume 10.2 fL (9.1-12.4); NEUTROPHILS ABSOLUTE AUTO 5.13 K/mm3 (1.96-9.15); NEUTROPHILS PERCENT AUTO 82 % (41-73); NRBC ABSOLUTE 0.03 K/mm3 (0.00-0.02); NRBC Auto 0.5 /100 WBC (0.0-0.2); Platelet Count 338 K/mm3 (150-400); RDW Coefficient Variation 16.9 % (11.7-14.2); RDW Standard Deviation 55.7 fL (35.1-46.3); White Blood Cell Count 6.29 K/mm3 (4.00-11.30)
[2022-06-13 08:00] LABS: Hemoglobin 5.9 g/dL (11.5-16.0)
[2022-06-13 10:20] LABS: International Normalized Ratio 1.03; Prothrombin Time Results 10.8 Sec (9.7-11.5)
[2022-06-13 10:24] LABS: Percent Saturation 1.4 % (15.0-50.0)
[2022-06-13 15:14] LABS: Hematocrit 18.4 % (33.0-51.0)
[2022-06-13 15:18] LABS: Hemoglobin 5.4 g/dL (11.5-16.0)
--- NOTE | 2022-06-13 17:18 | NUR ---
SHIFT SUMMARY PT HAS BEEN RESTING IN BED SINCE ARRIVAL ON UNIT FROM ED. PT HAS COMPLAINED OF MILD ABDOMIINAL DISCOMFORT AND NAUSEA BUT DENIED THE PRESENCE OF PAIN. HEART RATE HAS PERSISTED IN SINUS TACHYCARDIA 100-110. SYSTOLIC BLOOD PRESSURE HAS MEASURED 130-150. PT HAS HAD NO BOWEL MOVEMENT OR OUTPUT SINCE ARRIVAL.
--- NOTE | 2022-06-13 19:17 | NUR ---
CARE ASSUMPTION: PATIENT HR 80S, DENIES SOB OR OTHER DISCOMFORT, REPORTS LOW APPETITE AND DENIES NEEDS AT THIS TIME. MAINTENANCE FLUIDS RUNNING AT 75 MLS/HR. BED LOW WITH CALL LIGHT IN REACH.
[2022-06-13 21:21] LABS: Hematocrit 18.6 % (33.0-51.0)
[2022-06-13 21:32] LABS: Hemoglobin 5.4 g/dL (11.5-16.0)
--- NOTE | 2022-06-13 21:41 | NUR ---
CRITICAL VALUE NOTIFICATION: PATIENT'S HGB REMAINS AT 5.4 - NO CHANGE FROM EARLIER DRAW. MD NOT NOTIFIED THIS IS EXPECTED AND WE ARE STILL WAITING FOR PRBCS FROM [facility] THAT IS COMPATABLE WITH PATIENT'S ANTIBODIES. NO CHANGE IN PATIENT CONDITION AT THIS TIME - SHE IS RESTING IN BED AND VSS WITH NS INFUSING AT 75 MLS/HR. DISCUSSED WITH CORK MIXER.
[2022-06-14 04:01] LABS: Hematocrit 17.7 % (33.0-51.0); Hemoglobin 5.3 g/dL (11.5-16.0)
[2022-06-14 04:24] LABS: Bun/Creatinine Ratio 17.6 (12.0-20.0); Calcium, Blood 7.6 mg/dL (8.5-10.1); Creatinine, Blood 1.02 mg/dL (0.40-1.00); Potassium, Blood 3.9 mmol/L (3.5-5.5)
--- NOTE | 2022-06-14 15:03 | NUR ---
THE PATIENT WAS BROUGHT TO DAY SURGERY FOR HER PROCEDURE.
--- NOTE | 2022-06-14 15:15 | NUR ---
06/14/22 1515 Jasmina Zamarripa History, Chart, Medications and Allergies reviewed before start of procedure. MONITOR INTACT WITH CONTINUOUS PULSE OXIMETRY AND INTERMITTENT BP. O2 VIA N/C INTACT THROUGHOUT SEDATION/PROCEDURE. 3-LEAD EKG REVIEWED WITH PHYSICIAN PRIOR TO START OF PROCEDURE. See Anesthesia record FOR DETAILS. Bite Block Placed PRIOR TO START AND REMOVED AFTER SCOPE REMOVED.
--- NOTE | 2022-06-14 18:01 | NUR ---
SHIFT SUMMARY PT HAS BEEN SLEEPING OFF AND ON THROUGHOUT THE DAY. PT HAS DENIED ABDOMINAL PAIN AND DISCOMFORT AND HAS BEEN EASILY ROUSABLE BY VOICE. PT HAS BEEN COOPERATIVE WITH CARE AND CALLED APPROPRIATELY FOR ASSISTANCE. PT HAS CONTINUED TO HAVE LOW ENERGY LEVELS THOUGH THEIR APPETITE HAS INCREASED. VITAL SIGNS REMAIN STABLE, NO ACUTE CHANGES IN CONDITION NOTED.
[2022-06-15 03:16] LABS: Mean Corpuscular HGB 27.3 pg (26.0-34.0); Mean Corpuscular HGB Conc 29.7 g/dL (31.5-36.5); Mean Corpuscular Volume 92 fL (80-100); Mean Platelet Volume 10.3 fL (9.1-12.4); NRBC ABSOLUTE 0.21 K/mm3 (0.00-0.02); NRBC Auto 4.1 /100 WBC (0.0-0.2); Platelet Count 267 K/mm3 (150-400); RDW Coefficient Variation 17.3 % (11.7-14.2); RDW Standard Deviation 57.4 fL (35.1-46.3); Red Blood Cell Count 1.87 M/mm3 (3.80-5.20); White Blood Cell Count 5.15 K/mm3 (4.00-11.30)
[2022-06-15 03:23] LABS: Hematocrit 17.2 % (33.0-51.0); Hemoglobin 5.1 g/dL (11.5-16.0)
[2022-06-15 03:30] LABS: Bun/Creatinine Ratio 16.3 (12.0-20.0); Calcium, Blood 7.7 mg/dL (8.5-10.1); Creatinine, Blood 1.04 mg/dL (0.40-1.00)
--- NOTE | 2022-06-15 18:41 | NUR ---
SHIFT SUMMARY PT PLEASANT DURING INTERACTIONS AND RESPONDS APPPROPRIATELY; A&O X4. PT APPEARS PALE AND WEAK. PT STATES SHE FEELS "TIRED" AND HAS A HEADACHE. PT ALSO COMPLAINS OF RLQ ABDOMINAL PAIN. PROVIDER NOTIFIED; ULTRASOUND ORDERED AND COMPLETED. VSS. PT RECIEVED I UNIT OF RBS AND 2ND UNIT IS TRANSFUSING. PT DENIES SOB, CHILLS, BACK PAIN. PT APPEARED PALE DURING FIRST TRANSFUSION, BUT AFTER COMPLETION COLORED IMPROVED AND PT APPEARED TO FEEL BETTER. PT ALSO STATED SHE "FEELS MUCH BETTER THAN THIS MORNING". PT UP TO RESTROOM W/SUPERVISION AND TOLERATED WELL. NO ACUTE CHANGES THROUGHOUT SHIFT. CALL LIGHT WITHIN REACH AND BED IN LOWEST POSITION.
[2022-06-16 04:34] LABS: BASOPHILS ABSOLUTE AUTO 0.06 K/mm3 (0.00-0.23); BASOPHILS PERCENT AUTO 1 % (0-2); EOSINOPHILS ABSOLUTE AUTO 0.24 K/mm3 (0.00-0.68); EOSINOPHILS PERCENT AUTO 4 % (0-6); Hematocrit 31.2 % (33.0-51.0); IMMATURE GRAN ABSOLUTE AUTO 0.12 K/mm3 (0.00-0.10); IMMATURE GRAN PERCENT AUTO 2 % (0-1); LYMPHOCYTES ABSOLUTE AUTO 0.86 K/mm3 (0.84-5.20); LYMPHOCYTES PERCENT AUTO 13 % (21-46); MONOCYTES ABSOLUTE AUTO 1.02 K/mm3 (0.16-1.47); MONOCYTES PERCENT AUTO 15 % (4-13); Mean Corpuscular HGB 28.9 pg (26.0-34.0); Mean Corpuscular HGB Conc 32.1 g/dL (31.5-36.5); Mean Corpuscular Volume 90 fL (80-100); NEUTROPHILS ABSOLUTE AUTO 4.38 K/mm3 (1.96-9.15); NEUTROPHILS PERCENT AUTO 66 % (41-73); NRBC ABSOLUTE 0.25 K/mm3 (0.00-0.02); NRBC Auto 3.7 /100 WBC (0.0-0.2); Platelet Count 258 K/mm3 (150-400); RDW Coefficient Variation 15.8 % (11.7-14.2); RDW Standard Deviation 50.8 fL (35.1-46.3); Red Blood Cell Count 3.46 M/mm3 (3.80-5.20); White Blood Cell Count 6.68 K/mm3 (4.00-11.30)
[2022-06-16 05:02] LABS: Albumin, Blood 3.1 g/dL (3.4-5.0); Anion Gap 7 mmol/L (6-16); Blood Urea Nitrogen 17 mg/dL (8-24); Bun/Creatinine Ratio 17.8 (12.0-20.0); CO2, Blood 20 mmol/L (21-32); Calcium, Blood 8.3 mg/dL (8.5-10.1); Chloride, Blood 113 mmol/L (98-108); Creatinine, Blood 0.96 mg/dL (0.40-1.00); Glomerular Filtration Rate 64 (60-); Glucose, Blood 95 mg/dL (70-99); Phosphorus, Blood 1.8 mg/dL (2.5-4.9); Sodium, Blood 140 mmol/L (136-145)
--- NOTE | 2022-06-16 06:42 | NUR ---
NOC SHIFT SUMMARY PT ANXIOUS AT START OF SHIFT, STATES SHE MISSES HOME AND WANTS TO LEAVE. EDUCATED ON IMPORTANCE OF MONITORING AND BENEFIT VS RISK. PT AGREEABLE TO STAY. PT REQUESTED PRN SLEEPING PILL, GIVEN PER EMAR. LAST UNIT OF RBC INFUSED, PT TOLERATED WELL. VSS PER PT TREND, ON RA. NO COMPLAINTS OF PAIN, UP SBA TO BATHROOM, BED ALARM IN PLACE. WILL PASS ON TO DAY RN
[2022-06-16] MEDS ORDERED: PANT40 PO (12:17)
--- NOTE | 2022-06-16 13:35 | NUR ---
DISCHARGE SUMMARY S/P GI BLEED, A/OX4, VSS, TOLERATING PO, AMBULATING INDEPENDENTLY, DENIES PAIN. PT STATES DESIRE TO GO HOME SOON POSSIBLE REPORTING CONCERN FOR HER WHO SHE NORMALLY TAKES CARE OF. DISCUSSED DISCHARGE INFORMATION WITH PT INCLUDING HOME CARE, MEDICATIONS, AND FOLLOW UP APPOINTMENTS/CARE. MEDICATIONS FAXED TO HER [facility] PHARM[facility]Y TO BE PICKED UP BY PT. PT ESCORTED OUT VIA WC TO GO HOME [facility]IA [facility] AT HER REQUEST.
== END 2022-06-16 13:30 | disposition home or self-care (01) | DRG 377 ==
LOC: ER 05:22 → PCU 09:12
PROVIDERS: Emergency Medicine; Family Medicine; Internal Medicine Gastroenterology; Nurse Practitioner Acute Care; Student in an Organized Health Care Education/Training Program; ADMIT Internal Medicine
PROC: 0DJ08ZZ Inspection of Upper Intestinal Tract, Via Natural or Artificial Opening Endoscopic (ICD-10-PCS; principal; 2022-06-14 14:30)
DX: K92.2 Gastrointestinal hemorrhage, unspecified (principal); E43 Unspecified severe protein-calorie malnutrition; D62 Acute posthemorrhagic anemia; I24.8 Other forms of acute ischemic heart disease; I50.22 Chronic systolic (congestive) heart failure; I13.0 Hypertensive heart and chronic kidney disease with heart failure and stage 1 through stage 4 chronic kidney disease, or unspecified chronic kidney disease; Z68.1 Body mass index [BMI] 19.9 or less, adult; Z20.822 Contact with and (suspected) exposure to COVID-19; N18.30 Chronic kidney disease, stage 3 unspecified; D50.9 Iron deficiency anemia, unspecified; J44.9 Chronic obstructive pulmonary disease, unspecified; E78.5 Hyperlipidemia, unspecified; Z95.5 Presence of coronary angioplasty implant and graft; K21.9 Gastro-esophageal reflux disease without esophagitis; Z98.890 Other specified postprocedural states; Z88.8 Allergy status to other drugs, medicaments and biological substances; Z87.891 Personal history of nicotine dependence; K20.90 Esophagitis, unspecified without bleeding
CPT/HCPCS: 36415; 36430; 71045; 76857; 80048; 80053; 80069; 82728; 83540; 83550; 83880; 84484; 85014; 85018; 85025; 85027; 85610; 85730; 86850; 86870; 86880; 86900; 86901; 86920; 93005; 93010; 94667; 96374; 96375; 98960; 99291-25; A9270; C9113; J2250; J2405; J2704; J2916; J7030; J7120; P9016; U0004

== ENCOUNTER 2022-07-02 15:35 | Inpatient (IN) | payer MEDICARE ==
[~2022-07-02] VITALS: Ht 160 cm; Wt 43.0 kg
[~2022-07-02 15:35] MED LIST changes: +PANT40 PO
[2022-07-02 16:14] LABS: BASOPHILS ABSOLUTE AUTO 0.01 K/mm3 (0.00-0.23); BASOPHILS PERCENT AUTO 0 % (0-2); EOSINOPHILS PERCENT AUTO 0 % (0-6); Hematocrit 37.1 % (33.0-51.0); IMMATURE GRAN ABSOLUTE AUTO 0.05 K/mm3 (0.00-0.10); IMMATURE GRAN PERCENT AUTO 0 % (0-1); LYMPHOCYTES PERCENT AUTO 4 % (21-46); MONOCYTES ABSOLUTE AUTO 0.95 K/mm3 (0.16-1.47); MONOCYTES PERCENT AUTO 8 % (4-13); Mean Corpuscular HGB 31.3 pg (26.0-34.0); Mean Corpuscular HGB Conc 32.3 g/dL (31.5-36.5); Mean Corpuscular Volume 97 fL (80-100); Mean Platelet Volume 11.2 fL (9.1-12.4); NEUTROPHILS ABSOLUTE AUTO 9.94 K/mm3 (1.96-9.15); NEUTROPHILS PERCENT AUTO 87 % (41-73); NRBC ABSOLUTE 0.02 K/mm3 (0.00-0.02); NRBC Auto 0.2 /100 WBC (0.0-0.2); Platelet Count 199 K/mm3 (150-400); RDW Coefficient Variation 23.5 % (11.7-14.2); RDW Standard Deviation 82.2 fL (35.1-46.3); Red Blood Cell Count 3.84 M/mm3 (3.80-5.20); White Blood Cell Count 11.45 K/mm3 (4.00-11.30)
[2022-07-02] MEDS ORDERED: AMLODIPINE BESY10 MG PO (18:15)
[2022-07-02] MEDS ORDERED: SPIRONOLACTONE50 MG PO (18:16)
[2022-07-02] MEDS ORDERED: FUROSEMIDE20 MG PO (18:16)
[2022-07-02] MEDS ORDERED: METOPROLOL SUCC ER 5 (18:16)
[2022-07-02] MEDS ORDERED: [UNRECOGNIZED DRUG - OTHER] (18:17)
[2022-07-02 18:34] LABS: Albumin, Blood 3.5 g/dL (3.4-5.0); Albumin/Globulin Ratio 1.5 (0.8-1.8); Bilirubin, Total 1.6 mg/dL (0.1-1.0); Bun/Creatinine Ratio 43.9 (12.0-20.0); Calcium, Blood 9.1 mg/dL (8.5-10.1); Creatinine, Blood 1.32 mg/dL (0.40-1.00); Globulin, Blood 2.4 g/dL (2.2-4.0); Potassium, Blood 4.8 mmol/L (3.5-5.5); Total Protein, Blood 5.9 g/dL (6.4-8.2)
[2022-07-02 21:20] LABS: Source, Urine Fem Cath
[2022-07-02 21:26] LABS: Appearance, Urine Clear (Clear); Bilirubin, Urine Neg (Neg); Blood, Urine 3+ (Neg); Color, Urine Yellow (P-Yellow); Glucose Qualitative, Urine Neg (Neg); Ketones, Urine Neg (Neg); Leukocyte Esterase, Urine Neg (Neg); Nitrite, Urine Neg (Neg); Protein, Urine 3+ (Neg); Urobilinogen, Urine NORM (Normal)
[2022-07-02 21:48] LABS: Bacteria Few /hpf; Squamous Epithelial Cells Few /hpf (Few)
[2022-07-02] MEDS ORDERED: LATA.005SO BOTHEYES (23:15)
--- NOTE | 2022-07-02 23:43 | NUR ---
CALLED RESIDENT INFORMED OF SUSTAINED ELEVATED BP. PRN HYDRALAZINE GIVEN ORDERED. LASIX ORDER TO BE ENTERED WHEN PT KEEPER UP. WILL CONTINUE TO MONITOR.
--- NOTE | 2022-07-03 00:01 | NUR ---
ADMIT NOTE (LATE ENTRY 7 HOURS) PT ARRIVED TO FLOOR VIA GURNEY. PERSONAL POSSESSIONS WITH PT. PT ORIENTED TO UNIT. CALL BUTTON WITHIN REACH. PELON RE-APPLIED. TELEMETRY MONITORING IN PLACE.
--- NOTE | 2022-07-03 04:29 | NUR ---
SHIFT SUMMARY PT CAME TO THE ED TODAY WITH C/O SOB, BLE SWELLING AND WEAKNESS. PT WAS GIVEN LASIX IN THE ER AND ARRIVED TO OUR UNIT AT 2237. PT ON TELEMETRY WITH NSR @ 90. PT ARRIVED WITH HIGH BP, SYSTOLIC > 170 AND WAS GIVEN PRN HYDRALAZINE WHICH IMPROVED BP. CAST ON RLE IS PREVENTING AMBULATION, PUREWICK IN PLACE. CLEAR LUNG SOUNDS. NO ACUTE CHANGES, VSS, PT SLEEPING COMFORTABLY.
[2022-07-03 06:31] LABS: BASOPHILS ABSOLUTE AUTO 0.01 K/mm3 (0.00-0.23); BASOPHILS PERCENT AUTO 0 % (0-2); EOSINOPHILS PERCENT AUTO 0 % (0-6); Hematocrit 35.6 % (33.0-51.0); Hemoglobin 11.7 g/dL (11.5-16.0); IMMATURE GRAN ABSOLUTE AUTO 0.03 K/mm3 (0.00-0.10); IMMATURE GRAN PERCENT AUTO 0 % (0-1); LYMPHOCYTES ABSOLUTE AUTO 0.45 K/mm3 (0.84-5.20); LYMPHOCYTES PERCENT AUTO 5 % (21-46); MONOCYTES ABSOLUTE AUTO 0.69 K/mm3 (0.16-1.47); MONOCYTES PERCENT AUTO 7 % (4-13); Mean Corpuscular HGB 30.6 pg (26.0-34.0); Mean Corpuscular HGB Conc 32.9 g/dL (31.5-36.5); Mean Corpuscular Volume 93 fL (80-100); Mean Platelet Volume 10.5 fL (9.1-12.4); NEUTROPHILS ABSOLUTE AUTO 8.19 K/mm3 (1.96-9.15); NEUTROPHILS PERCENT AUTO 87 % (41-73); NRBC ABSOLUTE 0.02 K/mm3 (0.00-0.02); NRBC Auto 0.2 /100 WBC (0.0-0.2); Platelet Count 157 K/mm3 (150-400); RDW Coefficient Variation 22.7 % (11.7-14.2); RDW Standard Deviation 78.1 fL (35.1-46.3); Red Blood Cell Count 3.82 M/mm3 (3.80-5.20); White Blood Cell Count 9.37 K/mm3 (4.00-11.30)
[2022-07-03 06:53] LABS: Albumin, Blood 3.3 g/dL (3.4-5.0); Albumin/Globulin Ratio 1.4 (0.8-1.8); Bilirubin, Total 2.1 mg/dL (0.1-1.0); Bun/Creatinine Ratio 47.9 (12.0-20.0); Calcium, Blood 8.5 mg/dL (8.5-10.1); Creatinine, Blood 1.19 mg/dL (0.40-1.00); Globulin, Blood 2.4 g/dL (2.2-4.0); Magnesium, Blood 1.9 mg/dL (1.6-2.4); Potassium, Blood 3.5 mmol/L (3.5-5.5); Total Protein, Blood 5.7 g/dL (6.4-8.2)
--- NOTE | 2022-07-03 18:47 | NUR ---
SHIFT SUMMARY PT A&O X 3. VSS, IS PLEASANT & COOPERATIVE. DENIES PAIN OR SOB. PUREWICK IN PLACE AND DRAINING CLEAR YELLOW URINE.
--- NOTE | 2022-07-04 01:08 | NUR ---
CALLED HOSPITALIST PT EXPERIENCING SEVERE ABDOMINAL PAIN. HX OF GASTROPARESIS. I DID LET HOSPITALIST KNOW ABOUT PT'S ELEVATED LIVER ENZYMES. NEW PRN PAIN RX ORDERS IN EMAR.
--- NOTE | 2022-07-04 03:56 | NUR ---
SHIFT SUMMARY ADMITTED FOR CHF EXACERBATION/ARF. FULL CODE. TELEMETRY: NSR @ 69 BPM. PLAN IS TO DIURESE. RIGHT FOOT IN A CAST FROM OUTPT FALL. PRN PAIN MEDICATION OBTAINED THIS SHIFT FOR ABDOMINAL PAIN. HX OF GASTROPARESIS. SHE IS INCONTINENT, ATTENDS IN PLACE. SHE IS A&O X4. CARDIAC DIET. HX OF CAD, STENT, NSTEMI, CKD, CHRONIC ANEMIA. SHE IS FRAIL AND HAS NOT AMBULATED SINCE ADMIT. SHE HAS TRACE PLEURAL EFFUSIONS. LFT ARE ELEVATED, WILL CONTINUE TO MONITOR LABS
[2022-07-04 04:56] LABS: Hematocrit 35.8 % (33.0-51.0); Hemoglobin 11.9 g/dL (11.5-16.0); Mean Corpuscular HGB 30.8 pg (26.0-34.0); Mean Corpuscular HGB Conc 33.2 g/dL (31.5-36.5); Mean Corpuscular Volume 93 fL (80-100); Mean Platelet Volume 10.3 fL (9.1-12.4); NRBC ABSOLUTE 0.02 K/mm3 (0.00-0.02); NRBC Auto 0.2 /100 WBC (0.0-0.2); Platelet Count 156 K/mm3 (150-400); RDW Coefficient Variation 22.9 % (11.7-14.2); RDW Standard Deviation 77.8 fL (35.1-46.3); Red Blood Cell Count 3.86 M/mm3 (3.80-5.20)
[2022-07-04 05:32] LABS: Albumin, Blood 3.1 g/dL (3.4-5.0); Albumin/Globulin Ratio 1.3 (0.8-1.8); Bun/Creatinine Ratio 40.7 (12.0-20.0); Calcium, Blood 7.8 mg/dL (8.5-10.1); Creatinine, Blood 1.18 mg/dL (0.40-1.00); Globulin, Blood 2.4 g/dL (2.2-4.0); Magnesium, Blood 1.6 mg/dL (1.6-2.4); Percent Saturation 6.2 % (15.0-50.0); Potassium, Blood 2.5 mmol/L (3.5-5.5); Total Protein, Blood 5.5 g/dL (6.4-8.2)
--- NOTE | 2022-07-04 13:30 | NUR ---
Spiritual Care Visit Attempted. pt. is awake and sitting upright in a chair and welcomed my visit. Pt. is pleasant. soon after my arrival label fuser tender came to do bloodwork. Ended visit with Pt. and will seek to connect again at a different time.
[2022-07-04 14:04] LABS: Bun/Creatinine Ratio 38.7 (12.0-20.0); Calcium, Blood 8.1 mg/dL (8.5-10.1); Creatinine, Blood 1.11 mg/dL (0.40-1.00); Potassium, Blood 3.1 mmol/L (3.5-5.5)
--- NOTE | 2022-07-04 18:48 | NUR ---
SHIFT SUMMARY PT IS A&O X4 AND PLEASANT. PT WAS ABLE TO WORK WITH PHYSICAL THERAPY TODAY AND TOLERATED WELL. PT WAS UP IN CHAIR FOR MEALS. PT C/O OF ABD PAIN AND HAD DIFFICULTY URINATING. BLADDER SCAN SHOWED [address] NOTIFIED AND PT STRAIGT CATHED. PT STATED RELEIF AND "FEELING MUCH BETTER". VSS. BED IN LOWEST POSITION AND CALL LIGHT IN REACH.
--- NOTE | 2022-07-05 04:20 | NUR ---
MANUFACTURING MILLWRIGHT SUMMARY NO ACUTE CHANGES. PT PLEASANT AND COOPERATIVE WITH CARE. PT FEELING URGE TO URNINATE; ASSISTED TO BSC; NOT ABLE TO FULLY VOID. BLADDER SCAN SHOWED 624MLS OF URINE. PLACED CAPPS PER ORDER F/DR. ANN. PT TOLERATED WELL. SENT URINE SAMPLE TO LAB. PT DENIES PAIN AND SOB. CALL LIGHT IN REACH.
[2022-07-05 05:50] LABS: Hemoglobin 12.5 g/dL (11.5-16.0); Mean Corpuscular HGB 30.6 pg (26.0-34.0); Mean Corpuscular HGB Conc 32.9 g/dL (31.5-36.5); Mean Corpuscular Volume 93 fL (80-100); Mean Platelet Volume 10.2 fL (9.1-12.4); Platelet Count 153 K/mm3 (150-400); RDW Coefficient Variation 22.9 % (11.7-14.2); RDW Standard Deviation 78.3 fL (35.1-46.3); Red Blood Cell Count 4.08 M/mm3 (3.80-5.20); White Blood Cell Count 9.47 K/mm3 (4.00-11.30)
[2022-07-05 06:15] LABS: Albumin, Blood 3.3 g/dL (3.4-5.0); Albumin/Globulin Ratio 1.3 (0.8-1.8); Bilirubin, Total 1.7 mg/dL (0.1-1.0); Bun/Creatinine Ratio 36.1 (12.0-20.0); Creatinine, Blood 1.08 mg/dL (0.40-1.00); Globulin, Blood 2.6 g/dL (2.2-4.0); Magnesium, Blood 1.7 mg/dL (1.6-2.4); Total Protein, Blood 5.9 g/dL (6.4-8.2)
--- NOTE | 2022-07-05 17:54 | NUR ---
SHIFT SUMMARY PT SLEPT FOR SEVERAL HOURS IN THE AM. PT STATED FEELING "BLAH" AND "MORE TIRED TODAY". PT DECLINED TO WORK WITH OT TODAY D/T NOT FEELING WELL. PT C/O NAUSEA AND LOWER ABD. PAIN. MEDICATED X1 PER EMAR WITH GOOD EFFECT. PT STATES FEELING MORE SOB. PT PLACED ON 1L OF OXYGEN WITH GOOD EFFICACY. PT SATES NOT HAVING MUCH OF AN APPITTITE FOR DINNER. BED IN LOWEST POSITION AND CALL LIGHT IN REACH.
[2022-07-05 19:22] LABS: Source, Urine Foley catheter
[2022-07-05 19:31] LABS: Appearance, Urine Clear (Clear); Bilirubin, Urine Neg (Neg); Blood, Urine 1+ (Neg); Color, Urine Yellow (P-Yellow); Glucose Qualitative, Urine Neg (Neg); Ketones, Urine Neg (Neg); Leukocyte Esterase, Urine Neg (Neg); Nitrite, Urine Neg (Neg); Protein, Urine 2+ (Neg); Urobilinogen, Urine NORM (Normal)
[2022-07-05 20:09] LABS: Bacteria Not Seen /hpf; Red Blood Cells, Urine 0-2 /hpf (0-2); Squamous Epithelial Cells Rare /hpf (Few); White Blood Cells, Urine Not Seen /hpf (0-5)
--- NOTE | 2022-07-06 04:19 | NUR ---
RADIO REPAIR TEACHER SUMMARY PT MORE LETHARGIC TONIGHT. CONT W/1L NC. SAT IS WNL, BUT PT IS STILL FEELING SOB. PT DENIED PAIN. PT SLEPT T/O THE NIGHT. CALL LIGHT IN REACH.
[2022-07-06 05:07] LABS: Mean Corpuscular HGB Conc 32.4 g/dL (31.5-36.5); Mean Corpuscular Volume 93 fL (80-100); Mean Platelet Volume 10.2 fL (9.1-12.4); Platelet Count 128 K/mm3 (150-400); RDW Coefficient Variation 22.3 % (11.7-14.2); RDW Standard Deviation 76.4 fL (35.1-46.3)
[2022-07-06 05:40] LABS: Albumin, Blood 3.3 g/dL (3.4-5.0); Albumin/Globulin Ratio 1.2 (0.8-1.8); Bilirubin, Total 1.5 mg/dL (0.1-1.0); Bun/Creatinine Ratio 30.6 (12.0-20.0); Calcium, Blood 8.5 mg/dL (8.5-10.1); Creatinine, Blood 1.08 mg/dL (0.40-1.00); Globulin, Blood 2.7 g/dL (2.2-4.0); Potassium, Blood 3.4 mmol/L (3.5-5.5)
[2022-07-06] MEDS ORDERED: TAMS.4ER PO (12:46)
[2022-07-06] MEDS ORDERED: POTCHL20ER PO (12:46)
--- NOTE | 2022-07-06 13:45 | NUR ---
DISCHARGE SUMMARY- DISCHARGE INSTRUCTIONS REVIEWED WITH PT. NO IV IN PLACE. RX FAXED TO [facility]. JEFRY WEBSTER'D THIS AM, PT REPORTS SHE WAS ABLE TO GO A SUFFICIENT AMOUNT BUT WAS NOT MEASURED. PT DC'D HOME WITH FRIEND AT 1348, PT HAS NO CONCERNS AT THIS TIME.
== END 2022-07-06 14:35 | disposition home health service (06) | DRG 291 ==
LOC: ER 15:35 → MEDS 21:00
PROVIDERS: Internal Medicine; Physician Assistant; Student in an Organized Health Care Education/Training Program; ADMIT Internal Medicine
DX: I11.0 Hypertensive heart disease with heart failure (principal); E43 Unspecified severe protein-calorie malnutrition; I50.23 Acute on chronic systolic (congestive) heart failure; E87.1 Hypo-osmolality and hyponatremia; N17.9 Acute kidney failure, unspecified; Z68.1 Body mass index [BMI] 19.9 or less, adult; I25.10 Atherosclerotic heart disease of native coronary artery without angina pectoris; J44.9 Chronic obstructive pulmonary disease, unspecified; D64.9 Anemia, unspecified; E87.6 Hypokalemia; R79.89 Other specified abnormal findings of blood chemistry; I25.5 Ischemic cardiomyopathy; Z88.8 Allergy status to other drugs, medicaments and biological substances; K21.9 Gastro-esophageal reflux disease without esophagitis; E78.5 Hyperlipidemia, unspecified; Z98.890 Other specified postprocedural states; Z95.5 Presence of coronary angioplasty implant and graft; Z90.49 Acquired absence of other specified parts of digestive tract; F17.210 Nicotine dependence, cigarettes, uncomplicated; Z79.899 Other long term (current) drug therapy; Z79.02 Long term (current) use of antithrombotics/antiplatelets; Z79.82 Long term (current) use of aspirin; S92.301A Fracture of unspecified metatarsal bone(s), right foot, initial encounter for closed fracture; W18.30XA Fall on same level, unspecified, initial encounter
CPT/HCPCS: 36415; 71046; 80048; 80053; 81001; 82728; 83540; 83550; 83735; 83880; 84484; 85025; 85027; 93005; 93010; 93308; 93321; 93970; 94760; 94762; 96374; 96375; 97110; 97162; 97530; 99285-25; A9270; J0360; J1940; J2405; J3010